=== PATIENT | female | born 1995 | race Caucasian/White ===

== ENCOUNTER 2019-09-12 18:34 | Inpatient (IN) ==
[2019-09-12] MEDS ORDERED: SODIUM CHLORIDE 0.9% 1000ML 2,000 ML IV ONE (19:27)
[2019-09-12] MEDS ORDERED: KETOROLAC TROMETHAMINE 15 MG/ML VIAL IV ONE (19:35)
[2019-09-12] MEDS ORDERED: SODIUM CHLORIDE 0.9% 1000ML 1,000 ML IV ONE (19:35)
--- NOTE | 2019-09-12 19:39 | Emergency Department Note ---
Impression & Plan Fever, Abdominal pain, Bone lesion, Lung nodule, Leukocytosis ED Provider Note NAME: JAIR AKHTAR AGE: 24 SEX: F : 1995 ARRIVES VIA: Walk-In INFORMANT: Patient ED PROVIDER(S): Momo Eden DO CHIEF COMPLAINT: Left lower quadrant pain. HPI: Patient presents to the ER for severe left lower quadrant pain. This has been present for the past 24 hours. She notes that earlier it was a 10 out of 10. Describes it as sharp stabbing in nature. She has had pain in her left back radiating through her gluteus into her left thigh. This is been present off and on since June. She notes that walking and movement makes the pain significantly worse. She denies any cough, runny nose, fevers or belly pain. No other exacerbating or remitting factors. Patient does note that she has had some intermittent vaginal bleeding but notes that this has been present since she received a intrauterine device. Denies any history of cancer. No cough, runny nose, shortness of breath, or chest pain. Denies any vaginal bleeding or discharge ROS: See above HPI for pertinent positives & negatives. A total of 10 systems reviewed and were otherwise negative. PAST MEDICAL HISTORY:See Below PAST SURGICAL HISTORY:See Below FAMILY HISTORY:See Below SOCIAL HISTORY:See Below HOME MEDICATIONS:See Below ALLERGIES:See Below VITALS:See Below PHYSICAL EXAMINATION: GENERAL: Sitting up in bed, alert, well appearing, well nourished, no distress, non-toxic EYE EXAM: normal conjunctiva. PERRL and EOM's grossly intact. OROPHARYNX: no exudate, no erythema, lips, buccal mucosa, and tongue normal and mucous membranes are moist NECK: supple, no nuchal rigidity, no adenopathy, non-tender LUNGS: Clear to auscultation. Normal chest wall mechanics HEART: no murmurs, S1 normal and S2 normal ABDOMEN: abdomen soft, non-tender, normo-active bowel sounds, no masses, no rebound or guarding. BACK: Back is symmetrical on inspection and there is no deformity, no midline tenderness. Tenderness left lower lateral back tracking through left gluteus SKIN: no rashes and no bruising UPPER EXTREMITIES: upper extremities are grossly normal. LOWER EXTREMITIES: No pitting edema. Flexion-extension of the hips knees ankles and EHL 5 out of 5 bilaterally. Patellar and Achilles reflexes are 2 out of 4. NEURO EXAM: Normal sensorium, cranial nerves II-XII grossly intact, normal speech, no gross weakness of arms, no gross weakness of legs. No drift. Finger to nose intact. Gross sensation intact. MEDICAL DECISION MAKING: Patient is a 34-year-old female that presents the ER with left lower quadrant abdominal pain. She was febrile upon presentation with a temperature 38. IV was established blood work was obtained. Labs show leukocytosis of 15,000. P latelets are elevated in the 400s. BMP with a potassium of 3.3. LFTs were unremarkable. Protein was elevated at 9.8. Lipase was normal. Calcium was normal at 9.9. UA was negative. was negative. Patient also complains of pain radiating down her back into her left leg. She is neurol ogically intact in the lower extremities. CT abdomen pelvis and lumbar spine show a large disc which is likely causing her radicular symptoms in her left leg. CT of the abdomen showed no acute pathology but did note some small spiculated lesions in the lower lobes of the lung. At her age we did favor that this was likely infectious but she has no infectious symptoms. With the fever and the back pain MRI was performed although she denies any IV drug use, recent surgeries or any previous fevers. MRIs shows multiple lesions of the vertebral bodies and sacrum concerning for metastatic disease. Discussed with Dr. Jose from hematology oncology. Discussed with the hospitalist and patient was updated bedside. Patient will be admitted for further work-up. Triage Nursing notes reviewed. Prior medical records reviewed Vital Signs: reviewed and remarkable for febrile, tachycardic Differential diagnosis: Differential diagnosis includes etiologies such as sepsis, UTI, pneumonia, metabolic, electrolyte abnormalities, cardiac sources, intracerebral event, toxicologic, neurological, as well as others were entertained. ER treatment provided: See below Diagnostics interpreted by me: ECG: none Cardiac Monitoring: An order was placed for continuous cardiac monitoring. The monitor shows a rate of 86 with rhythm. Laboratory studies: As stated above and show below. Imaging studies: CT abdomen pelvis shows no acute pathology MRI of the lumbar spine shows disc with some bony lesions CT of the lumbar spine showed disc bulge Portable AP upright 1 view of the chest shows no focal infiltrate or pneumothorax Consultation(s): Dr. Jose from hematology oncology commends admission Discussed with Dr. Hampton ED COURSE: Procedures: none PDMP:reviewed and no issues Critical Care: None Past Med/Surg History Social History Feels Safe at Home: Yes Smoking Status: Never smoker Allergies Allergies Allergy/AdvReac Type Severity Reaction Status Date / Time peanut Allergy Severe THROAT Verified 09/12/19 23:39 SWELLS, MOUTH DRYS UP peanut oil Allergy Severe THROAT Verified 09/12/19 23:39 SWELLS, MOUTH DRYS UP Home Meds Home Medications Medication Instructions Recorded Confirmed copper [ParaGard T 380A] 380 mm2 INTRAUTERINE CONTINOUS 09/12/19 09/12/19 dextroamphetamine-amphetamine 20 mg PO DAILY 09/12/19 09/12/19 [Adderall XR] Results & Data (ED) Vital Signs Vital Signs - 24 hr 09/12/19 18:54 09/12/19 23:08 Temperature 37.9 C H Temperature Source Oral Pulse Rate 101 H Pulse Rate [Finger] 63 Respiratory Rate 18 18 Blood Pressure 118/82 Blood Pressure [Left Arm] 104/38 L Blood Pressure Mean 94 Blood Pressure Mean [Left Arm] 60 Pulse Oximetry 98 98 Oxygen Delivery Method Room Air Room Air Sepsis Recent Fever Within 48 Hours Yes Sepsis New/Unexplained Change in Mental Status No Sepsis Action Taken by Nursing No Action Required Laboratory Data Result diagrams: 09/12/19 19:44 09/12/19 19:44 Lab Results 09/12/19 09/12/19 09/12/19 Range/Units 19:44 19:44 19:44 WBC 15.72 H (4.8-10.8) K/uL RBC 4.72 (4.2-5.4) M/uL Hgb 12.7 (12.0-16.0) g/dL Hct 38.5 (37-47) % MCV 81.6 (80-100) fL MCH 26.9 (25-34) pg MCHC 33.0 (32-36) g/dL RDW Std Deviation 41.7 (36.4-46.3) fL RDW Coeff of Franci 13.8 (11.5-14.5) % Plt Count 488 H (130-400) K/uL MPV 9.8 (7.4-10.4) fL Immature Gran % (Auto) 0.2 % Neut % (Auto) 78.0 % Lymph % (Auto) 11.1 % Piute % (Auto) 7.8 % Eos % (Auto) 2.5 % Baso % (Auto) 0.4 % Immature Gran # (Auto) 0.03 H (0.00-0.02) K/uL Neut # (Auto) 12.26 H (1.4-6.5) K/uL Lymph # (Auto) 1.75 (1.2-3.4) K/uL Piute # (Auto) 1.23 H (0.11-0.59) K/uL Eos # (Auto) 0.39 (0-0.5) K/uL Baso # (Auto) 0.06 (0-0.2) K/uL Sodium 137 (136-145) mmol/L Potassium 3.3 L (3.5-5.1) mmol/L Chloride 102 (98-107) mmol/L Carbon Dioxide 28 (21-32) mmol/L Anion Gap 6.0 (3-11) BUN 6 L (7-18) mg/dl Creatinine 0.91 (0.6-1.2) mg/dl Est Cr Clr Drug Dosing 77.8 ml/min Est GFR ( Amer) 100.9 Est GFR (Non-Af Amer) 87.1 BUN/Creatinine Ratio 6.7 L (10-20) Glucose 77 (70-99) mg/dl Calcium 9.9 (8.5-10.1) mg/dl Total Bilirubin 0.2 (0.2-1) mg/dl AST 12 L (15-37) U/L ALT 24 (12-78) U/L Alkaline Phosphatase 132 H (45-117) U/L Total Protein 9.8 H (6.4-8.2) gm/dl Albumin 4.3 (3.4-5.0) gm/dl Globulin 5.5 H (2.5-4.0) gm/dl Albumin/Globulin Ratio 0.8 L (0.9-2) Lipase 109 (73-393) U/L Urine Color Yellow Urine Appearance Clear (Clear) Urine pH 6.0 (4.5-7.5) Ur Specific Selmer 1.015 (1.000-1.030) Urine Protein Negative (Negative) Urine Glucose (UA) Negative (Negative) Urine Ketones Negative (Negative) Urine Blood Negative (Negative) Urine Nitrite Negative (Negative) Urine Bilirubin Negative (Negative) Urine Urobilinogen Negative (Negative) Ur Leukocyte Esterase Negative (Negative) POC Ur Test (NEG) 09/12/19 Range/Units 19:44 WBC (4.8-10.8) K/uL RBC (4.2-5.4) M/uL Hgb (12.0-16.0) g/dL Hct (37-47) % MCV (80-100) fL MCH (25-34) pg MCHC (32-36) g/dL RDW Std Deviation (36.4-46.3) fL RDW Coeff of Franci (11.5-14.5) % Plt Count (130-400) K/uL MPV (7.4-10.4) fL Immature Gran % (Auto) % Neut % (Auto) % Lymph % (Auto) % Piute % (Auto) % Eos % (Auto) % Baso % (Auto) % Immature Gran # (Auto) (0.00-0.02) K/uL Neut # (Auto) (1.4-6.5) K/uL Lymph # (Auto) (1.2-3.4) K/uL Piute # (Auto) (0.11-0.59) K/uL Eos # (Auto) (0-0.5) K/uL Baso # (Auto) (0-0.2) K/uL Sodium (136-145) mmol/L Potassium (3.5-5.1) mmol/L Chloride (98-107) mmol/L Carbon Dioxide (21-32) mmol/L Anion Gap (3-11) BUN (7-18) mg/dl Creatinine (0.6-1.2) mg/dl Est Cr Clr Drug Dosing ml/min Est GFR ( Amer) Est GFR (Non-Af Amer) BUN/Creatinine Ratio (10-20) Glucose (70-99) mg/dl Calcium (8.5-10.1) mg/dl Total Bilirubin (0.2-1) mg/dl AST (15-37) U/L ALT (12-78) U/L Alkaline Phosphatase (45-117) U/L Total Protein (6.4-8.2) gm/dl Albumin (3.4-5.0) gm/dl Globulin (2.5-4.0) gm/dl Albumin/Globulin Ratio (0.9-2) Lipase (73-393) U/L Urine Color Urine Appearance (Clear) Urine pH (4.5-7.5) Ur Specific Selmer (1.000-1.030) Urine Protein (Negative) Urine Glucose (UA) (Negative) Urine Ketones (Negative) Urine Blood (Negative) Urine Nitrite (Negative) Urine Bilirubin (Negative) Urine Urobilinogen (Negative) Ur Leukocyte Esterase (Negative) POC Ur Test NEG (NEG) Administered Medications Gadobutrol (Gadavist 65ml) 5 ml IV ONCE PRN PRN Reason: Interaction Checking Stop: 09/16/19 22:43 Last Admin: 09/12/19 22:40 Dose: 5 ml Documented by: [id number] Ioversol (Optiray 320 100ml) 94 ml IV ONCE PRN PRN Reason: Interaction Checking Stop: 09/16/19 20:39 Last Admin: 09/12/19 20:41 Dose: 94 ml Documented by: [id number] Discontinued Medications Sodium Chloride (Nss 1000ml) 2,000 mls @ 999 mls/hr IV .Q2H1M ONE Stop: 09/12/19 21:27 Last Infusion: 09/12/19 22:00 Dose: 0 mls/hr Documented by: [id number] Admin: 09/12/19 19:53 Dose: 999 mls/hr Documented by: [id number] Sodium Chloride (Nss 1000ml) 1,000 mls @ 999 mls/hr IV .Q1H1M ONE Stop: 09/12/19 20:35 Last Admin: 09/13/19 00:15 Dose: Not Given Documented by: [id number] Ketorolac Tromethamine (Toradol) 15 mg IV NOW ONE Stop: 09/12/19 19:36 Last Admin: 09/12/19 20:06 Dose: 15 mg Documented by: [id number] Discharge Plan Visit Data Chief Complaint: Pain (Generalized) Stated Complaint: PELVIC PAIN, BACK PAIN, LEFT LEG NUMB ED Provider: Momo Eden Discharge Problem: Fever, Abdominal pain, Bone lesion, Lung nodule, Leukocytosis Forms Stand Alone Forms: [facility] Prescriptions Prescriptions: No Action dextroamphetamine-amphetamine [Adderall XR] 20 mg Capsule,Extended Release 24hr 20 mg PO DAILY RF: 0 ParaGard T 380A 380 square mm Intrauterine Device 380 mm2 INTRAUTERINE CONTINOUS RF: 0 Discharge Problem: Fever Qualifiers: Fever type: unspecified Qualified Code(s): R50.9 - Fever, unspecified Abdominal pain Qualifiers: Abdominal location: unspecified location Qualified Code(s): R10.9 - Unspecified abdominal pain Leukocytosis Qualifiers: Leukocytosis type: unspecified Qualified Code(s): D72.829 - Elevated white blood cell count, unspecified
[2019-09-12 19:59] LABS: Basophils # (auto) 0.06 K/uL (0-0.2); Basophils % (auto) 0.4 %; Eosinophils # (auto) 0.39 K/uL (0-0.5); Eosinophils % (auto) 2.5 %; Hematocrit (blood only) 38.5 % (37-47); Hemoglobin 12.7 g/dL (12.0-16.0); Immature Granulocytes # (auto) 0.03 K/uL (0.00-0.02); Immature Granulocytes % (auto) 0.2 %; Lymphocytes # (auto) 1.75 K/uL (1.2-3.4); Lymphocytes % (auto) 11.1 %; Mean Corpuscular Hemoglobin 26.9 pg (25-34); Mean Corpuscular Volume 81.6 fL (80-100); Mean Platelet Volume 9.8 fL (7.4-10.4); Monocytes # (auto) 1.23 K/uL (0.11-0.59); Monocytes % (auto) 7.8 %; Neutrophils # (auto) 12.26 K/uL (1.4-6.5); Platelet Count 488 K/uL (130-400); RDW Coefficient of Variation 13.8 % (11.5-14.5); RDW Standard Deviation 41.7 fL (36.4-46.3); Red Blood Count 4.72 M/uL (4.2-5.4); White Blood Count 15.72 K/uL (4.8-10.8)
[2019-09-12 20:03] LABS: Appearance Urine Clear (Clear); Bilirubin Urine Negative (Negative); Blood Urine Negative (Negative); Color Urine Yellow; Glucose Urine UA Negative (Negative); Ketones Urine Negative (Negative); Leukocyte Esterase Urine Negative (Negative); Nitrite Urine Negative (Negative); Protein Urine Negative (Negative); Specific Gravity Urine 1.015 (1.000-1.030); Urobilinogen Urine Negative (Negative)
[2019-09-12 20:16] LABS: Albumin Level 4.3 gm/dl (3.4-5.0); BUN Creatinine Ratio 6.7 (10-20); Calcium 9.9 mg/dl (8.5-10.1); Creatinine Clr Calc Pharmacy 77.8 ml/min; Est GFR (African American) 100.9; Est GFR (Non-African American) 87.1; Potassium 3.3 mmol/L (3.5-5.1)
[2019-09-12 20:19] LABS: Albumin Globulin Ratio 0.8 (0.9-2); Bilirubin,Total 0.2 mg/dl (0.2-1); Globulin 5.5 gm/dl (2.5-4.0); Total Protein 9.8 gm/dl (6.4-8.2)
[2019-09-12] MEDS ORDERED: IOVERSOL 100ml IV PRN (20:40)
--- NOTE | 2019-09-12 20:55 | CT Scan Report ---
CT lumbar spine wo con HISTORY: 24 years-old Female lower back pain acute low back pain without reported trauma COMPARISON: CT abdomen and pelvis 09/12/2019 TECHNIQUE: Multiple axial CT images of the lumbar spine were obtained without the use of IV contrast. Coronal and sagittal reformatted images were obtained from the axial data set and were submitted for review. A dose lowering technique was used consistent with the principals of JUSTINO. FINDINGS: Please refer to the CT abdomen and pelvis study of same day for discussion of the intra-abdominal fin dings. The paraspinal tissues are within normal limits. Mild sclerosis of the mid L2 vertebral body appears benign. No acute fracture, subluxation or signifi cant degenerative changes. Evaluation of the central canal and neuroforamina is better evaluated by Christina BRAR. There is a large central disc protrusion at L4-L5 which appears to cause at least moderate centra l canal and left lateral recess narrowing. The bilateral neuroforamen at this interspace appear gener ally patent. IMPRESSION: 1. No acute fracture or subluxation. 2. Large central/left paracentral disc protrusion at L4-L5 results in at least moderate central canal and left lateral recess stenosis. ACT 112: Negative or not required by law. The above report was generated using voice recognition software. It may contain grammatical, syntax o r spelling errors. Electronically signed by: Alex Clinton M.D. 09/12/2019 8:54 PM
--- NOTE | 2019-09-12 21:03 | CT Scan Report ---
ABDOMEN AND PELVIS CT WITH IV CONTRAST HISTORY: Acute left lower quadrant abdominal pain with low back pain llq abd pain TECHNIQUE: Multiaxial CT images of the abdomen and pelvis were performed following the IV administrat ion of 94 cc of Optiray 320, A dose lowering technique was utilized adhering to the principles of AL EILEEN. COMPARISON STUDY: CT lumbar spine of same day FINDINGS: There are several irregular and somewhat spiculated nodular opacities of the basal lower lobes measur ing up to 1.3 cm on the right, image 28 series 3. No pneumatosis or pneumoperitoneum. The imaged infe rior cardiac chambers are unremarkable. Pectus excavatum. The spleen, pancreas and adrenal glands are unremarkable. Mildly contracted gallbladder. Periportal edema is likely related to hydration status. Patency of the hepatic and portal veins. Unremarkable kidneys. Partially decompressed urinary bladder. IUD appears appropriate positioning wit hin the uterus. Follicular changes of the ovaries. Trace free pelvic fluid, likely physiologic. Aorta and IVC are unremarkable. No adenopathy. There is mild nonspecific distal esophageal wall thickening . No bowel obstruction. No bowel wall thickening identified. Normal appendix. There are a few scatter ed nondilated fluid-filled loops of small bowel, likely physiologic. Soft tissues are unremarkable. B ones appear intact. There is a central disc protrusion at L4-L5 which contributes to at least moderat e central canal stenosis. IMPRESSION: 1. No acute intra-abdominal or intrapelvic abnormality. 2. There are several irregular and spiculated pulmonary nodules of the lung bases measuring up to 1.3 cm within the basal right lower lobe. In a patient of this age group, the primary differential consi deration would be an infectious or inflammatory pneumonitis. A follow-up one month chest CT is recomm ended to further characterize. 3. Central disc protrusion at L4-L5 contributes to at least moderate central canal stenosis. 4. Normal appendix. ACT 112: Negative or not required by law. The above report was generated using voice recognition software. It may contain grammatical, syntax o r spelling errors. Electronically signed by: Alex Clinton M.D. 09/12/2019 9:01 PM
[2019-09-12] MEDS ORDERED: GADOBUTROL 65ML VIAL IV PRN (22:44)
[2019-09-13 00:41] LABS: Uric Acid 4.1 mg/dl (2.6-7.2)
--- NOTE | 2019-09-13 03:07 | History & Physical Report ---
Date of Service September 13, 2019 Assessment & Plan (1) Back pain: Nilda is an otherwise healthy 24 yo female presenting for evaluation of progressive left low back and abdominal pain, found to have bilateral spiculated lung masses and osseous lesions on spine concerning for new, metastatic process. - lumbar spine MRI showing disc protrusion at L4-L5 causing moderate to severe spinal canal stenosis - MRI also showing enhancing lesions in T11, L2, L5 vertebral bodies and left transverse process of L5. Also present in right aspect of sacrum. These findings are concerning for an undiagnosed neoplasm/osseous metastatic process - discomfort may be related to one or both of the above findings - pain resolved with IV Toradol and Gadavist - Toradol ordered prn for additional analgesia - consider PET scan (which would have to take place as outpatient) given concern for new, metastatic process - heme/onc consult placed - consider ortho spine consult for disc protrusion management (2) Lung nodule: - bilateral spiculated nodules in lung bases visualized on abdominopelvic CT scan - patient without history of underlying lung disease - patient denies preceding upper or lower respiratory symptoms - no tobacco or illicit drug use - concerning for malignancy, especially in the setting of spine lesions, elevated ESR, and leukocytosis - consider dedicated chest imaging to further characterize and assess for lymphadenopathy vs. PET scan - heme/onc consult placed (3) Abdominal pain: - described as left lower quadrant - likely related to above disc herniation - resolved with IV toradol and Gadvist - CT showing no acute process in abdomen or pelvis (4) Bone lesion: - Lumbar spine MRI showing enhancing lesions in T11, L2, L5 vertebral bodies and left transverse process of L5. Also present in right aspect of sacrum. These findings are concerning for an undiagnosed neoplasm/osseous metastatic process - work up per heme/onc (5) Leukocytosis: - WBC elevated to 15,000 with neutrophilia, elevated monocytes and immature granulocytes. - concern for infection vs. malignancy - UA clear. Patient with spiculated nodules in bilateral lung bases, although denies respiratory symptoms of cough/SOB/general malaise. Unclear source of infection. - peripheral smear pending - blood cultures pending - repeat CBC in AM (6) Fever: - Tmax 37.9 on admission, has since resolved - suspicion of infection vs. inflammatory state - patient denies present illness - Acetaminophen ordered prn for anti-pyretic (7) Hypokalemia: - level mildly low at 3.3 on admission - repeat BMP in AM (8) ADHD: - continue Adderall 20mg, daily Dispo: Med/Surg DVT: bilateral SCDs Diet: NPO until evaluated by heme/onc (in the event of biopsy procedure) Code: full History of Present Illness Primary Care Provider: NO PCP Nilda is a 24 yo otherwise healthy female who presented to the ED for evaluation of left sided low back and abdominal pain. Nilda first noticed the left low back pain in June 2019, at which time the discomfort radiated to her left gluteus muscle. Nilda and her moved several weeks prior to onset of discomfort, although she cannot recall a specific lifting injury to her back. After discussing with a close friend who works as a physical therapist, Nilda began a set of daily stretching exercises targeted for sciatica. However, the stretching provided only minimal improvement, and over the past 2-3 weeks, the left low back pain began wrapping around her torso to the left side of her abdomen. Nilda describes an excruciating level of discomfort at times, and notes unremitting nighttime pain. Advil provided no relief. She was scheduled to see a physician at [facility] for this problem later in the week, but presented sooner due to escalating pain. Patient denies any recent illness, including fevers, runny nose, cough, SOB, general malaise. 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 PMHx: ADHD, on Adderall. Diagnosed with "vasovagal syncope" several years ago by an outside physician, which resulted in several fainting episodes. This was treated with increasing dietary sodium intake. Has a Paraguard IUD in place since 2017. Surg Hx: two mole excisions, pathology returned as benign Fam Hx: Paternal Grand Father - COPD. Father - kidney stones, ADHD. Mother - healthy. Older Brother - ADHD. No family history of cancer. Soc Hx: . Sexually active with . 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 Lives in [place]. Non-smoker. No illicit drug use. Etoh only on rare occasion. ED course: Patient was febrile on arrival (tmax 37.9). WBC elevated to 15,000 with neutrophilia, elevated monocytes and immature granulocytes. Platelets elevated to 488K. Peripheral smear pending. Blood cultures pending. Potassium low at 3.3. Electrolytes otherwise normal. ESR elevated to 71. Total protein elevated to 9.8. Alk phos elevated to 132. Lipase normal. UA normal. Urine preg negative. CXR obtained, showing no active disease in chest, final read pending. Abdomen and pelvis CT showing several spiculated masses in bilateral lung bases. No acute intraabdominal findings, final read pending. Lumbar spine CT showing large central/left paracentral disc protrusion at L4-L5 results in at least moderate central canal and left lateral recess stenosis. Final read pending. Lumbar spine MRI showing enhancing lesions in T11, L2, L5 vertebral bodies and left transverse process of L5. Also present in right aspect of sacrum. Concerning for neoplasm/osseous metastatic. Disc protrusion at L4-L5 causing moderate to severe spinal canal stenosis. Final read pending. Patient was treated with Toradol 15mg, IV, Gadvist 65Ml, IV and IVF. Allergies Allergy/AdvReac Type Severity Reaction Status Date / Time peanut Allergy Severe THROAT Verified 09/12/19 23:39 SWELLS, MOUTH DRYS UP peanut oil Allergy Severe THROAT Verified 09/12/19 23:39 SWELLS, MOUTH DRYS UP Home Medications Home Medications Medication Instructions Recorded Confirmed Type ParaGard T 380A 380 mm2 INTRAUTERINE CONTINOUS 09/12/19 09/12/19 History dextroamphetamine-amphetamine 20 mg PO DAILY 09/12/19 09/12/19 History [Adderall XR] Past Med/Surg History Social History Preferred Language: Maltese Communication Ability: Effective Building Stonecutter Required: No Beliefs That Will Affect Care: None Current Living Situation: Spouse Other Information That Helps Us Care for You: No Feels Safe at Home: Yes Safety Concerns: Feels Safe At This Time Smoking Status: Never smoker Hx Alcohol Use: Yes Alcohol type: beer and wine Hx Substance Use: No Review of Systems Genitourinary: + bleeding between periods and + abnormal vaginal bleeding Musculoskeletal: + back pain Physical Exam Constitutional: WD/WN, vitals as above no acute distress Eyes: + anicteric sclerae ENMT: external ear and nose normal, oropharynx normal Neck: normal visual inspection and trachea midline Thyroid: normal thyroid Respiratory: normal respiratory effort, lungs clear to auscultation no cough Auscultation: no crackles, no rales, no rhonchi, no wheezes and no pleural rub Cardiovascular: RRR, no murmur, no edema Heart Sounds: normal S1 and normal S2 Extremities: no pedal edema Gastrointestinal (Abdomen): Inspection/Auscultation: normal bowel sounds; abdomen not distended Percussion/Palpation: + abdomen tender (mild, suprapubic region ) and abdomen soft; no hepatosplenomegaly Musculoskeletal: + midline tenderness in lumbar region. + paraspinal muscle tenderness in thoracic region. + left gluteal tenderness Skin: no rashes, warm and dry Psychiatric: A+Ox3, euthymic affect Results & Data Results & Data ([facility]) Vital Signs (Past 12 Hours) Vital Signs Temp Pulse Pulse Resp BP BP Pulse Ox 09/13/19 02:39 63 18 99/59 L 99 09/12/19 23:08 63 18 104/38 L 98 09/12/19 18:54 37.9 C H 101 H 18 118/82 98 Supervising Physician Co-Signing Physician Notes Attending addendum: I have physically seen this patient, have supervised the medical residents activities, and agree with the H&P unless as otherwise noted. Assessment and Plan: Enhancing lesions at T11/L2/L5 vertebral bodies, left L5 transverse process, and right sacrum- Radiologic interpretation concerns regarding metastatic disease of unknown primary. Consult oncology Dr. Jose. Irregular spiculated bilateral pulmonary nodules at the lung bases bilaterally- Differential during this age group is infectious versus inflammatory. Patient without any significant exposures. We will order full CT of chest to further assess, and determine if IV antibiotics are appropriate. May need pulmonology consult for possible bronchoscopy. Hyperproteinemia/bone lesions/leukocytosis- Total protein level 9.8. Question with a globulin increase is associated with increased antibodies versus underlying immunologic issue such as MGUS, MM. Order peripheral smear Consult with heme-onc Dr. Jose. Remaining orders and notations as noted. Resident Activity Tracking Resident Involvement: Resident Care Provided Care Provided: Adult Hospital Medicine (1) Fever Fever type: unspecified Qualified Code(s): R50.9 - Fever, unspecified (2) Leukocytosis Leukocytosis type: unspecified Qualified Code(s): D72.829 - Elevated white blood cell count, unspecified (3) Abdominal pain Abdominal location: unspecified location Qualified Code(s): R10.9 - Unspecified abdominal pain
[2019-09-13] MEDS ORDERED: MAGNESIUM HYDROXIDE SUSP 30 ML UDC PO PRN (03:34)
[2019-09-13] MEDS ORDERED: ACETAMINOPHEN 325 MG TAB PO PRN (03:34)
[2019-09-13] MEDS ORDERED: ALUMINUM/MAGNESIUM SUSP 30 ML UDC PO PRN (03:34)
[2019-09-13] MEDS ORDERED: ONDANSETRON INJ 2 MG/ML 2 ML VIAL IV PRN (03:34)
[2019-09-13] MEDS ORDERED: POLYETHYLENE (MIRALAX) 17 GM PACK PO PRN (03:34)
[2019-09-13] MEDS ORDERED: ZOLPIDEM TARTRATE 5 MG TAB PO PRN (03:34)
[2019-09-13] MEDS ORDERED: [UNRECOGNIZED DRUG - OTHER] IU SCH (03:34)
--- NOTE | 2019-09-13 07:28 | CT Scan Report ---
CT chest wo con CLINICAL HISTORY: Suspected metastatic disease. Abnormal MRI of the lumbar spine. COMPARISON STUDY: No previous studies for comparison. CT DOSE: 290.46 mGycm TECHNIQUE: CT of the thorax was performed from the thoracic inlet to the lung bases. Images are revi ewed in the axial, sagittal, and coronal planes. IV contrast was not administered for this examinatio n. A dose lowering technique was utilized adhering to the principles of ALARA. FINDINGS: Thyroid: Imaged portions of the thyroid gland are normal in appearance. Thoracic aorta: The thoracic aorta is normal in course and caliber, noting standard 3 vessel arch sarah jarvis. Heart: The heart is normal in size and configuration, without pericardial effusion. Lungs and pleural spaces: There are multiple bilateral irregular marginated pulmonary nodules. These could be neoplastic or infectious. The largest is located within the right lower lobe measuring 12 mm . There are no pleural effusions. Mediastinum: There are borderline enlarged mediastinal lymph nodes measuring up to 9.5 mm in diameter . Tatiana: Hilar structures are suboptimally assessed given the lack of intravenously administered contras t. Axilla: There is no evidence of pathologic axillary lymphadenopathy Upper abdomen: Partially visualized upper abdominal viscera is within normal limits. Skeletal structures: There are subtle blastic changes involving the manubrium. IMPRESSION: 1. Multiple bilateral irregularity marginated pulmonary nodules, the largest of which measures 12 mm. These could be neoplastic or infectious. 2. Subtle blastic changes involving the manubrium 3. Borderline enlarged mediastinal lymph nodes ACT 112: Negative or not required by law. Electronically signed by: Tay Morris M.D. 09/13/2019 7:26 AM
[2019-09-13 07:54] LABS: Basophils # (auto) 0.04 K/uL (0-0.2); Basophils % (auto) 0.4 %; Eosinophils % (auto) 3.3 %; Hematocrit (blood only) 33.3 % (37-47); Hemoglobin 10.7 g/dL (12.0-16.0); Immature Granulocytes # (auto) 0.02 K/uL (0.00-0.02); Immature Granulocytes % (auto) 0.2 %; Lymphocytes # (auto) 1.63 K/uL (1.2-3.4); Mean Corpuscular Hemoglobin 26.3 pg (25-34); Mean Corpuscular Hgb Conc 32.1 g/dL (32-36); Mean Corpuscular Volume 81.8 fL (80-100); Mean Platelet Volume 9.6 fL (7.4-10.4); Monocytes # (auto) 0.77 K/uL (0.11-0.59); Monocytes % (auto) 8.5 %; Neutrophils # (auto) 6.31 K/uL (1.4-6.5); Neutrophils % (auto) 69.6 %; Platelet Count 345 K/uL (130-400); RDW Standard Deviation 42.1 fL (36.4-46.3); Red Blood Count 4.07 M/uL (4.2-5.4); White Blood Count 9.07 K/uL (4.8-10.8)
--- NOTE | 2019-09-13 07:54 | XRay Report ---
XR chest 1V portable CLINICAL HISTORY: fever COMPARISON STUDY: No previous studies for comparison. FINDINGS: The cardiac and mediastinal contours are normal. There is no evidence of focal pulmonary co nsolidation. There is no evidence of failure. No pleural effusions are visualized.[ IMPRESSION: No active disease in the chest. ACT 112: Negative or not required by law. Electronically signed by: Tay Morris M.D. 09/13/2019 7:52 AM
[2019-09-13 08:24] LABS: BUN Creatinine Ratio 7.7 (10-20); Calcium 8.5 mg/dl (8.5-10.1); Creatinine Clr Calc Pharmacy 109.1 ml/min; Est GFR (Non-African American) 122.5; Potassium 3.8 mmol/L (3.5-5.1)
--- NOTE | 2019-09-13 08:27 | Magnetic Resonance Report ---
MR lumbar spine wo/w con CLINICAL HISTORY: 24 years-old Female with fever back pain. Fever with acute low back pain COMPARISON: CT lumbar spine, CT abdomen and pelvis 09/12/2019 TECHNIQUE: Multiplanar, multi sequence MRI of the lumbar spine was performed without intravenous cont rast. FINDINGS: Ambulance Paramedic localizer images demonstrate no gross extraspinal abnormality. Conus medullaris terminates at T 12-L1. Normal signal within the imaged thoracic spinal cord. The cauda equina appear unremarkable. Ma rrow replacing enhancing lesions are noted with in the T11, L2 and L5 vertebral bodies with extension into the left L5 pedicle. Partially imaged lesion involves the right sacral ala. These lesions demon strate decreased T1 and increased T2/STIR signal. No pathologic fracture or cortical destruction. No epidural lesions. T12-L1: No central canal or neural foraminal stenosis. L1-L2: No central canal or neural foraminal stenosis. L2-L3: No central canal or neural foraminal stenosis. L3-L4: No central canal or neural foraminal stenosis. L4-L5: Mild disc space narrowing with disc desiccation. Circumferential annular disc bulge with cent ral disc protrusion which measures 1.5 x 0.6 cm in transverse and AP dimensions. This narrows the AP dimension of the thecal sac to 6 mm resulting in moderate to severe central canal stenosis with moder ate to severe narrowing of the lateral recesses. Mild bilateral foraminal narrowing. L5-S1: No central canal or neural foraminal stenosis. IMPRESSION: 1. Marrow replacing enhancing lesions at T11, L2, L5 and also within the right sacral ala are suspici ous for osseous metastatic disease from unknown primary. Lymphoma is also within the differential how ever considered less likely. Oncologic workup is needed. 2. No pathologic fracture, cortical erosion or epidural tumor component identified. 3. Discogenic degeneration at L4-L5 with central disc protrusion results in moderate to severe centra l canal and lateral recess narrowing with mild bilateral foraminal stenosis. ACT 112: Negative or not required by law. The above report was generated using voice recognition software. It may contain grammatical, syntax o r spelling errors. Electronically signed by: Alex Clinton M.D. 09/13/2019 8:26 AM
[2019-09-13] MEDS: KETOROLAC TROMETHAMINE 15 MG/ML VIAL IV PRN ×2 (08:40→15:30)
[2019-09-13] MEDS ORDERED: AMPHETAMINE ASP/SULF/DEXTRAMPH ER 20 MG CAP PO SCH (09:00)
--- NOTE | 2019-09-13 11:59 | Consultation Report ---
DATE OF CONSULTATION: 09/13/2019 MEDICAL ONCOLOGY CONSULTATION REASON FOR CONSULTATION: Sclerotic L5 lesion. HISTORY OF PRESENT ILLNESS: Nilda Penny is a very pleasant, sweet 24-year-old female patient from [place] who was admitted to [facility] after presenting to the Emergency Room with subacute-onset back pain. Nilda admits her pain/discomfort began back in May and she equated her symptoms to back strain, but never really had marked improvement, and over the last couple of weeks, the quality and character of the pain have changed, now experiencing a belt-like band distribution of pain as well as numbness and tingling that extended down the left lower extremity. She denies any overt muscle weakness, is able to ambulate. She utilized [id number] nonsteroidals for pain control. She denies anorexia or weight loss. The patient does not relate fever; however, low-grade fever was noted upon presentation. I was alerted to her case by the Emergency Room physician and based on the radiographic findings, thought it was best that she be admitted to hospital. CT scan of the chest revealed interesting findings as well. Multiple bilateral marginated pulmonary nodules, the largest of which is 12 mm, thought to be either neoplastic or infection. There are subtle blastic changes involving the manubrium noted. Peripheral blood counts done on admission reveal a reactive thrombocytosis as well as leukocytosis-predominant neutrophilia. Her protein is markedly elevated at 9.8 with a globulin fraction of 5.5. PAST MEDICAL HISTORY: Essentially negative. PAST SURGICAL HISTORY: Negative. MEDICATIONS: She uses an IUD and Adderall-XL 20 mg p.o. daily. ALLERGIES: PEANUTS AND PEANUT OIL. SOCIAL HISTORY: The patient is , currently a PhD student in psychology. She is a nonsmoker, nondrinker. FAMILY HISTORY: On the paternal side, both her paternal grandfather and paternal uncle from pulmonary disease, I suspect idiopathic pulmonary fibrosis from what she describes. Her mother is adopted. Thus, no direct family history of breast cancer. REVIEW OF SYSTEMS: Most notably for subacute-onset progressive back pain, now with radicular symptoms. CONSTITUTIONAL: Negative for fevers, chills or night sweats. She is not anorexic or losing weight. SKIN: She suffers from dysplastic nevi and follows with dermatology regularly. No overt rashes or lesions otherwise. HEENT: Negative for headaches, lightheadedness or dizziness. No acute visual or hearing deficits. No sinus symptoms, sore throat or dysphagia. LYMPHATICS: No history of lymphoproliferative disease. CARDIAC: No history of coronary artery disease, no angina or palpitations. PULMONARY: Negative for COPD. She is not short of breath, dyspneic or orthopneic. No cough or hemoptysis. GASTROINTESTINAL: Negative for abdominal pain, nausea, vomiting, diarrhea or constipation, hematochezia or melena stools. GENITOURINARY: No hematuria, dysuria, or urinary incontinence. PSYCHIATRIC: Negative for anxiety, depression or psychoses. ENDOCRINE: Negative for diabetes or thyroid disease. MUSCULOSKELETAL: As per HPI. NEUROLOGIC: Negative for seizure, stroke, or migraine headache. HEMATOLOGIC: Again, positive for leukocytosis (neutrophilia and reactive thrombocytosis). PHYSICAL EXAMINATION: NEUROLOGICAL: A very pleasant 24-year-old female patient, awake, alert and appropriate, in no acute distress. VITAL SIGNS: Temperature 36.1, pulse 58, respiratory rate 15, blood pressure 92/58. SKIN: Warm, dry, noncyanotic without petechia, rash or ecchymosis. Again, she has several hyperpigmented nevi on her back. HEENT: Atraumatic, normocephalic. Eyes: PERRLA, EOMI. Sclerae nonicteric. No conjunctival injection. Nares are patent without rhinorrhea or discharge. Throat is clear. Tongue is midline. Mucous membranes are moist. NECK: Supple without JVD or thyromegaly. LYMPHATICS: No cervical, supraclavicular, or axillary palpable nodes. HEART: Regular rate and rhythm. No clicks, rubs, murmurs or gallops. LUNGS: Clear to auscultation bilaterally. ABDOMEN: Soft, nontender, nondistended, without palpable hepatosplenomegaly. EXTREMITIES: Musculoskeletal strength and pulses are equal in all 4 quadrants. No clubbing, cyanosis or edema. NEUROLOGICAL: She is awake, alert and oriented x3. Cranial nerves II-XII are grossly intact. No gross motor or sensory deficits are noted. RADIOGRAPHIC DATA: Reviewed CT scan of the chest and MRI of the lumbar spine with Dr. Khan and he believes at first glance these lesions are neoplastic and has difficulty coming up with a nonmalignant differential diagnosis. CT scan of the chest as described in the HPI. LABORATORY DATA: WBC count 15,720, hemoglobin 12.7. Her platelet count 488,000, absolute neutrophil count 12,260. Chemistries: Sodium 137, potassium 3.3, chloride 102, carbon dioxide 28, creatinine 0.91, BUN 6. Her alkaline phosphatase mildly elevated at 132. Again, total protein 9.8, globulin 5.5. Urinalysis is unremarkable. IMPRESSION: 1. Scattered sclerotic bony lesions. 2. Back pain attributable to scattered sclerotic bony lesions. 3. Pulmonary spiculated nodules (infectious versus neoplastic). 4. Increased globulin fraction. PLAN: Nilda Penny was seen and examined at bedside this morning. She describes subacute-onset back pain spanning the last several months and was afraid to come to the hospital or physician for care because of COVID outbreak. Over the past couple of weeks, the character of pain has changed, more persistent, increased radiation in belt-like fashion as well as radicular symptoms extending down into the left lower extremity. Reviewed the MRI with Dr. Khan, and both the radiologist and myself are perplexed and somewhat shocked with the findings in a 24-year-old female patient. Bone biopsy needs to be done. I have discussed the case informally with Dr. Jean who will be the managing hospitalist and collectively agreed to consult Dr. Murcia from orthopedics to see if he would be willing to obtain tissue. Differential diagnosis for sclerotic bone lesions in a female are Paget's disease as well as breast cancer. Multiple myeloma generally presents as lytic skeletal lesions. The globulin fraction needs to be investigated. Therefore, we will obtain a serum protein electrophoresis with immunofixation to rule out monoclonality. If Dr. Murcia is unwilling to pursue a biopsy, I have recommended she be transferred to [facility] for further investigation and workup. Otherwise, the immediate focus should be pain management. I will continue to follow Nilda periodically during her hospital stay. Thank you for allowing me to participate in the care of this very pleasant young lady.
--- NOTE | 2019-09-13 16:59 | Hospitalist Progress Note ---
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; awaiting bed availability. - NPO at midnight - SPEP with fixation pending 2) Pain - currently well controlled - PRN tylenol, ibuprofen (2) Lung nodule: (3) Abdominal pain: (4) Bone lesion: (5) Leukocytosis: (6) Fever: (7) Hypokalemia: (8) ADHD: Admission and Anticipated Discharge Date Admission Date: September 13, 2019 Supervising Physician Co-Signing Physician Notes I personally examined the patient and verified all lazaro points of history and exam, discussed case, and agree with decision making with Dr Alvarez. has good understanding of situation, tearful at times but also cautiously optimistic given that she is otherwise young, healthy, and she does not think dx probably going on that long since pain only there about 3 months. no breast lesions she notes. vitals noted nad heent nc at mmm breathing unlabored no accessory muscle use good effort skin no rashes no pallor or icterus back pain/presumed new dx metastatic cancer - appears getting tissue (most probably from Lspine) would be best next step in determining dx and then planning treatment. with large portion of L5 appearing replaced by tumor - concern would be on Lspine stability making outpatient w/u unsafe until/unless seen/possibly intervened upon by ortho/spine with oncology experience (d/w our spine surgeon here who noted due to lack of cases he would only really be able to get biopsy, not otherwise manage her situation) for transfer to [facility] once bed available. Subjective Pleasant 24 yo F admitted for workup of abdominal and back pain. See H&P for ROS and PE. Results & Data Results & Data ([facility]) Vital Signs (Past 12 Hours) Vital Signs Temp Pulse Pulse Resp BP Pulse Ox 09/13/19 15:44 37.2 C 79 18 109/70 99 09/13/19 11:33 36.8 C 70 15 116/69 100 09/13/19 10:46 37.1 C 63 58 L 15 92/58 L 99 09/13/19 07:56 37.1 C 58 L 15 92/58 L 99 Resident Activity Tracking Resident Involvement: Resident Care Provided Care Provided: Adult Hospital Medicine (1) Fever Fever type: unspecified Qualified Code(s): R50.9 - Fever, unspecified (2) Leukocytosis Leukocytosis type: unspecified Qualified Code(s): D72.829 - Elevated white blood cell count, unspecified (3) Abdominal pain Abdominal location: unspecified location Qualified Code(s): R10.9 - Unspecified abdominal pain
--- NOTE | 2019-09-14 05:53 | Billing Data ---
Date of Service September 14, 2019 Coding Level of Care Code 03947 Initial Inpt Care Lvl 3
--- NOTE | 2019-09-14 15:14 | Discharge Summary ---
Date of Service September 14, 2019 Admission HPI Per Admitting Provider Nilda is a 24 yo otherwise healthy female who presented to the ED for evaluation of left sided low back and abdominal pain. Nilda first noticed the left low back pain in June 2019, at which time the discomfort radiated to her left gluteus muscle. Nilda and her moved several weeks prior to onset of discomfort, although she cannot recall a specific lifting injury to her back. After discussing with a close friend who works as a physical therapist, Nilda began a set of daily stretching exercises targeted for sciatica. However, the stretching provided only minimal improvement, and over the past 2-3 weeks, the left low back pain began wrapping around her torso to the left side of her abdomen. Nilda describes an excruciating level of discomfort at times, and notes unremitting nighttime pain. Advil provided no relief. She was scheduled to see a physician at [facility] for this problem later in the week, but presented sooner due to escalating pain. Patient denies any recent illness, including fevers, runny nose, cough, SOB, general malaise. 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 PMHx: ADHD, on Adderall. Diagnosed with "vasovagal syncope" several years ago by an outside physician, which resulted in several fainting episodes. This was treated with increasing dietary sodium intake. Has a Paraguard IUD in place since 2017. Surg Hx: two mole excisions, pathology returned as benign Fam Hx: Paternal Grand Father - COPD. Father - kidney stones, ADHD. Mother - healthy. Older Brother - ADHD. No family history of cancer. Soc Hx: . Sexually active with . 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 Lives in [place]. Non-smoker. No illicit drug use. Etoh only on rare occasion. ED course: Patient was febrile on arrival (tmax 37.9). WBC elevated to 15,000 with neutrophilia, elevated monocytes and immature granulocytes. Platelets elevated to 488K. Peripheral smear pending. Blood cultures pending. Potassium low at 3.3. Electrolytes otherwise normal. ESR elevated to 71. Total protein elevated to 9.8. Alk phos elevated to 132. Lipase normal. UA normal. Urine preg negative. CXR obtained, showing no active disease in chest, final read pending. Abdomen and pelvis CT showing several spiculated masses in bilateral lung bases. No acute intraabdominal findings, final read pending. Lumbar spine CT showing large central/left paracentral disc protrusion at L4-L5 results in at least moderate central canal and left lateral recess stenosis. Final read pending. Lumbar spine MRI showing enhancing lesions in T11, L2, L5 vertebral bodies and left transverse process of L5. Also present in right aspect of sacrum. Leena rning for neoplasm/osseous metastatic. Disc protrusion at L4-L5 causing moderate to severe spinal canal stenosis. Final read pending. Patient was treated with Toradol 15mg, IV, Gadvist 65Ml, IV and IVF. Admission Exam Per Admitting Provider Constitutional: WD/WN, vitals as above no acute distress Eyes: + anicteric sclerae ENMT: external ear and nose normal, oropharynx normal Neck: normal visual inspection and trachea midline Thyroid: normal thyroid Respiratory: normal respiratory effort, lungs clear to auscultation no cough Auscultation: no crackles, no rales, no rhonchi, no wheezes and no pleural rub Cardiovascular: RRR, no murmur, no edema Heart Sounds: normal S1 and normal S2 Extremities: no pedal edema Gastrointestinal (Abdomen): Inspection/Auscultation: normal bowel sounds; abdomen not distended Percussion/Palpation: + abdomen tender (mild, suprapubic region ) and abdomen soft; no hepatosplenomegaly Musculoskeletal: + midline tenderness in lumbar region. + paraspinal muscle tenderness in thoracic region. + left gluteal tenderness Skin: no rashes, warm and dry Psychiatric: A+Ox3, euthymic affect Principal Diagnosis Lumbar disc herniation, metastatic cancer of unknown origin Discharge Exam Constitutional well developed, well nourished and + thin; no acute distress Respiratory normal respiratory effort, lungs clear to auscultation Cardiovascular RRR, no murmur, no edema Gastrointestinal (Abdomen) normal bowel sounds, soft, nontender, no hepatosplenomegaly Musculoskeletal Midline tenderness to palpation in thoracic and lumbar region, mild paraspinal tenderness. ANterior tenderness over left sacral ala into inguinal canal. Skin no rashes, warm and dry Neurologic PERRL, EOMI, accommodation nl, no face palsy, no dysarthria Speech / Cognition: normal speech Motor/Sensory: no tremor and normal movement plantar and dorsiflexion of feet 5/5 bilaterally Discharge Data Allergies Allergy/AdvReac Type Severity Reaction Status Date / Time peanut Allergy Severe THROAT Verified 09/12/19 23:39 SWELLS, MOUTH DRYS UP peanut oil Allergy Severe THROAT Verified 09/12/19 23:39 SWELLS, MOUTH DRYS UP Consultations 09/12/19 23:57 ED Decision to Admit Stat 09/13/19 03:34 Consult Hematology Routine 09/13/19 10:07 Burn CD for patient Stat 09/13/19 19:37 Burn CD for patient Stat Ordered Studies 09/12/19 19:35 CT abd pelvis IV con only Stat CT lumbar spine wo con Stat 09/12/19 21:43 MR lumbar spine wo/w con Urgent 09/13/19 04:55 CT chest wo con Urgent Hospital Course (1) Back pain: Nilda Penny is a 24 yo F with no PMH who presented to the ED with back pain for 3 months that had recently worsened in the past 2 weeks to be sharp in nature and wake her up from sleep. During ED visit, abdominal and chest imaging revealed bilateral spiculated nodules in lung bases, enhancing lesions on MRI on T11, L2, L5 vertebral bodies and right sacral ala. ESR elevated, WBC elevated to 15k. HemeOnc consulted, opined that hematologic malignancy high on differential and will require SPEP, UPEP + bone biopsy for diagnosis. Local spine surgeon uncomfortable with cancer related biopsies and reconstruction; transferred to for continuation of care, diagnosis and management. (2) Lung nodule: (3) Abdominal pain: (4) Bone lesion: (5) Leukocytosis: (6) Fever: (7) Hypokalemia: (8) ADHD: Total Time Total Time Spent Total Time Spent (In Minutes): >30 Discharge Plan Discharge Items Patient Disposition: Transfer Acute Care Hospital Reason For Visit: ABDOMINAL PAIN Discharge Diagnosis: Abdominal pain, metastatic cancer of unknown origin Activity: Per Instructions section Non-emergency contact: Primary Care Provider and Oncologist Call non-emergency contact if: your symptoms worsen and your pain is not controlled Follow-up/Referrals: Angelita Alvarez MD [Resident] - PCP,NO [Primary Care Provider] - Diet: Regular Addtl Attending Provider Instructions: transferred to for diagnosis and management of new metastatic cancer of unknown origin Pending Studies at Discharge: No Stand-Alone Forms: My [employer] Skilled Items Patient informed of condition?: Yes DNR: No Discharge Level of Care: Other Communicable Disease: No Discharge Prognosis: Stable Lines: Peripheral IV Urinary Catheter: No Medications and DC Order Prescriptions: Continued dextroamphetamine-amphetamine [Adderall XR] 20 mg Capsule,Extended Release 24hr 20 mg PO DAILY RF: 0 ParaGard T 380A 380 square mm Intrauterine Device 380 mm2 INTRAUTERINE CONTINOUS RF: 0 Discharge Orders: Discharge Order (Routine); Ordered 09/13/19 Ordered By: Gerry Cary Admission Data Admit Date/Time: 09/13/19 02:40 Attending Provider: Momo Jean Admit Provider: Natali Myles Primary Care Provider: PCP,ALDA Other Providers: Sundar Baldwin ; Jose Lynn V. ; Angelita Alvarez Other Interventions: Discharge Summary Assessment (RN) Last Done: 09/13/19 20:47 DC Date/Time DO NOT enter until pt leaves facility: 09/13/19 22:15 Supervising Physician Co-Signing Physician Notes I personally examined the patient and verified all lazaro points of history and exam, discussed case, and agree with decision making with Dr Alvarez Resident Activity Tracking Resident Involvement: Resident Care Provided Care Provided: Adult Hospital Medicine
== END 2019-09-13 22:15 | disposition short-term general hospital (02) | DRG 552 ==
LOC: ED 18:34 → 2S 09-13 02:40 → SUATTDRO 09-13 02:40 → 2S 09-13 03:06

== ENCOUNTER 2022-04-16 13:47 | Observation (INO) ==
--- NOTE | 2022-04-16 14:53 | Obstetrical Progress Note ---
Date of Service April 16, 2022 Assessment & Plan (1) with 35 completed weeks gestation: (2) Status post fall: Plan Plan monitoring for 4 hours. Looks category one and very reassuring. Subjective Patient presents to labor and delivery at 35 weeks s/p fall for prolonged monitoring. Got up out of bed, tripped over a backpack and fell on hands and knees. She barely grazed her upper belly. NO vb, lof. Patient noted some very mild lower abdominal cramping but this is improving. Notes good fm. Just after the fall she noted really "aggressive movement" but baby has calmed down. Beckie is on lovenox for a hx of DVT with a PICC line while being treated for Hodgkins lymphoma. Last dose was last night. Physical Exam Constitutional: WD/WN, vitals as above Gastrointestinal (Abdomen): soft, gravid, nt, no bruising. Genitourinary: cx--deferred toco--rivas efm--130s wtih mod variability, accels to 160s, no decels Results & Data ([facility]) Vital Signs (Past 12 Hours) Vital Signs Temp Pulse Resp BP 04/16/22 14:05 37.1 C 18 04/16/22 13:55 94 H 105/55 L PG Care Time/CCT Total # of Minutes Spent Total Time Spent with Patient: Total time spent is greater than 50% in coordination of care (as documented) at patient's floor/unit and/or counseling patient: Coding Level of Care Code 66388 Office/Outpt Visit, Est Diagnoses with 35 completed weeks gestation Z3A.35 Status post fall Z91.81
--- NOTE | 2022-04-16 17:41 | Obstetrical Progress Note ---
Date of Service April 16, 2022 Assessment & Plan (1) Status post fall: (2) with 35 completed weeks gestation: Plan fetus category one. plan d/c at 6:30 after 4 hours of monitoring and 7 hours from fall. precautions reviewed. Admission and Anticipated Discharge Date Admission Date: April 16, 2022 Subjective Patient doing well, no concerns. Physical Exam Physical Exam: toco--rare efm--130s with mod variability, accels to 160s, no decels Results & Data ([facility]) Vital Signs (Past 12 Hours) Vital Signs Temp Pulse Resp BP 04/16/22 14:05 37.1 C 18 04/16/22 17:31 67 108/63 04/16/22 13:55 94 H 105/55 L PG Care Time/CCT Total # of Minutes Spent Total Time Spent with Patient: Total time spent is greater than 50% in coordination of care (as documented) at patient's floor/unit and/or counseling patient: Coding Level of Care Code INP/OBS EV SAME DAY LV 1,45MIN Diagnoses Status post fall Z91.81 with 35 completed weeks gestation Z3A.35
--- NOTE | 2022-04-17 15:08 | Discharge Summary ---
Date of Service April 17, 2022 Admission HPI Per Admitting Provider Patient is a 26yowf with iup at 35 weeks who underwent a fall at 11:30am. Notes mild lower abdominal cramping, no vb/lof. good movement. Patientt presents to labor and delivery for prolonged monitoring. The has been otherwise uncomplicated. Admission Exam (Per Admitting) Constitutional WD/WN, vitals as above Gastrointestinal (Abdomen) soft, nt, gravid, no bruising Psychiatric A+Ox3, euthymic affect Genitourinary cx--deferred toco--none efm--category one fetus, 130s wtih mod variability, accels to 160s, no decels. Hospital Course (1) Status post fall: (2) with 35 completed weeks gestation: Plan Patient presented to the hospital at about 2:30. She was monitored for 4 hours. Fetus always category one and reactive. She never had any significant contraction activity, bleeding or leaking, baby remained active. she was d/c 7 hours after the fall with precautions and to return for her regularly scheduled appointment. Coding Level of Care Code HOSP INP/OBS DISCH 30 MIN/LESS Diagnoses Status post fall Z91.81 with 35 completed weeks gestation Z3A.35
== END 2022-04-16 18:42 | disposition home or self-care (01) ==
LOC: 4S1 13:47 → OPB 13:47 → 4S1 13:49
DX: W19.XXXA Unspecified fall, initial encounter; Z3A.35 35 weeks gestation of pregnancy; R10.30 Lower abdominal pain, unspecified

== ENCOUNTER 2022-05-08 11:44 | Inpatient (IN) ==
--- NOTE | 2022-05-08 12:02 | History & Physical Report ---
Date of Service May 08, 2022 Assessment & Plan (1) Supervision of normal first : Plan: ROM at 2100 yesterday evening (16 hours ago). Plan to augment with Pitocin, as she is not having regular contractions - Admit to L&D for labor - Would like to get an epidural; consult anesthesiology (2) Positive GBS test: Plan: - Positive GBS on urine culture, plan to treat with Penicillin (3) Pulmonary emboli: Plan: - history of PE post removal of central line. Has been following with MFM. Was transitioned from Lovenox to heparin 5000 units sub Q BID, last dose 2100 yesterday evening (16 hours ago). Will continue to hold. Admission and Anticipated Discharge Date Admission Date: May 08, 2022 History of Present Illness Primary Care Provider: RICHARD Key Nilda is a 26 y/o female currently at 38 4/7 WGA with an SID 05/17/2022 as determined by LMP who is here for . Her was complicated by history of Hodgkin lymphoma treated with chemo in 2020 and PE after removal of central line. Was being seen by MFM. Lydia that she had ROM around 2100 yesterday evening. Nitrazine positive in office this morning. + contractions; + movement; + fluid loss; - bloody show External FHT and external uterine monitors used; Category 1 tracing; moderate FHT variability. Had regular appointments with OB. Labs: (10/10/2021) Blood type: O+ Antibody screen: Neg Rubella: Equivocal VDRL/RPR: Neg Gonorrhea: Neg Chlamydia: Neg HIV: Neg HbSAg: Neg GBS: positive Other screens: cfdna-low risk--mln neg cf/sma at [facility] 06/2021--akh gbs positive urine Allergies Allergy/AdvReac Type Severity Reaction Status Date / Time peanut Allergy Intermediate Dry Verified 05/08/22 10:47 throat, mouth and some swallowing difficulties peanut oil Allergy Intermediate Dry Verified 05/08/22 10:47 throat, mouth and some swallowing difficulties vancomycin Allergy Rash/Flushi Verified 05/08/22 10:47 ng Home Medications Medication Instructions Recorded Confirmed Type prenat.vits,mimi,cdc-ants-jdgxz 1 tab PO DAILY 07/31/21 05/08/22 History heparin (porcine) 5,000 unit/mL 5,000 unit subcut BID 05/08/22 05/08/22 History injection solution Patient History Medical History (Updated 05/08/22 @ 13:04 by Cora Julian DO) Abdominal pain Anemia Back pain Bone lesion Depression History of chemotherapy History of chicken pox Leukocytosis Lung nodule Osteomyelitis of lumbar spine Osteomyelitis of pelvis Ovarian cyst Pulmonary emboli as result from central line Seasonal allergies Surgical History History of removal of skin mole Port-A-Cath in place Was already removed S/P bronchoscopy Family History (Updated 10/02/21 @ 10:07 by Breann Macias) Grandmother (Paternal) Ovarian cancer Father Hypertension Kidney stone Grandfather (Paternal) Liver disease Kidney stone Mother Fibrocystic breast Denies family history of Breast cancer Colorectal cancer Social History (Updated 04/16/22 @ 14:02 by Mel Lyman RN) Smoking Status: Never smoker Second Hand Exposure: No; Hx Alcohol Use: No Hx Substance Use: No Preferred Language: Nepali Communication Ability: Effective Network Support Manager Required: No Beliefs That Will Affect Care: None marital status: marital status details: Melvin Penyn (29) [phone] Current Living Situation: Spouse Current Living Situation Comment: lives with spouse, dog current occupational status: student current occupation: Doctorate student at [employer] Feels Safe at Home: Yes Safety Concerns: Feels Safe At This Time Assistive Devices: None Review of Systems Denies fever, chills, sweats Denies shortness of breath, difficulty breathing, chest pain, palpitations, chest pressure. Denies breast pain. Denies dysuria. Denies headache or changes in vision. Physical Exam Physical Exam: General: Alert, oriented. No acute distress. Cardiac: Regular rate and rhythm, no murmurs/rubs/gallops. Respiratory: Clear to auscultation bilaterally a/p, no wheezes/rales/rhonchi. No increased work of breathing. Symmetrical chest rise. No respiratory distress. Abdomen: Gravid; + FHTs Pelvic: 1.5cm dilated, 50% effaced, -2 station Lower Extremities: No lower extremity edema or swelling. No deep calf pain. Lizabeth's negative bilaterally Supervising Physician Co-Signing Physician Notes Resident Physician Supervision Note: I interviewed and examined the patient. Discussed with Dr. Julian and agree with findings and plan as documented in the note. Any exceptions or clarifications are listed here: 26 yo G1 at 38 4/7 wga presents from the office after noting continued LOF since 9pm last evening. ROM confirmed in the office. On heparin [id number] for hx DVT, last dose 9pm. +FM; denies painful ctx, VB. VSS, fetus cat 1. SVE 1.5/50/-2. GBS+, will start pcn. Discussed w/ anesthesia and she is ok for epidural prn. Will start pit, EFW 6-7 Documented By: Luna Kuhn MD Resident Activity Tracking Resident Involvement: Resident Care Provided Care Provided: OB Delivery
[2022-05-08] MEDS ORDERED: OXYTOCIN 30 UNITS/500 ML BAG IV PRN ×2 (12:07→12:10)
[2022-05-08] MEDS ORDERED: LIDOCAINE 1% LOCAL 20 ML VIAL INFIL PRN (12:07)
[2022-05-08] MEDS ORDERED: PENICILLIN G POTASSIUM 6 MU in DEXTROSE 5% 250 ML IV STA (12:11)
[2022-05-08 13:00] LABS: Hematocrit (blood only) 31.4 % (37.0-47.0); Hemoglobin 9.8 g/dl (12.0-16.0); Mean Corpuscular Hemoglobin 22.6 pg (25.0-34.0); Mean Corpuscular Hgb Conc 31.2 g/dL (32.0-36.0); Mean Corpuscular Volume 72.4 fL (80.0-100.0); Mean Platelet Volume 10.3 fL (9.4-12.4); Platelet Count 347 K/uL (130-400); RDW Standard Deviation 39.2 fL (36.4-46.3); Red Blood Count 4.34 M/uL (4.20-5.40); White Blood Count 11.46 K/ul (4.8-10.8)
[2022-05-08] MEDS: LACTATED RINGER'S 1,000 ML IV PRN ×3 (13:54→21:08)
[2022-05-08] MEDS ORDERED: PENICILLIN G POTASSIUM 3 MU in DEXTROSE 5% 100 ML IV PRN (15:07)
--- NOTE | 2022-05-08 19:39 | Labor Progress Brief Note ---
Date of Service May 08, 2022 Subjective Getting more uncomfortable Assessment & Plan (1) Supervision of normal first : (2) Positive GBS test: (3) Pulmonary emboli: Plan 26 yo G1 at 38 4/7 wga admitted for prom VSS Fetus cat 1 Labor - forebag palpated and ruptured after discussing w/ pt, pit at 18, continue induction GBS+, pcn ordered desires epidural Admission and Anticipated Discharge Date Admission Date: May 08, 2022 Physical Exam Genitourinary: Manual OB Exam: + cervical dilation 2 cm, + cervical effacement 70%, + station -2 and + amniotic fluid (arom forebag) OB Exam Monitor Tracing: + external FHT monitor used, + external uterine monitor used (3) and + category I (120-125/mod/+accel/-decel) Results & Data ([facility]) Vital Signs (Past 12 Hours) Vital Signs Temp Pulse Resp BP 05/08/22 19:19 98.1 F 18 05/08/22 19:16 60 99/58 L 05/08/22 18:01 98.2 F 61 22 106/56 L 05/08/22 16:12 62 118/65 05/08/22 16:10 20 05/08/22 16:10 98.1 F 20 05/08/22 12:01 98.2 F 100 H 18 119/73 05/08/22 12:19 98.2 F Coding Level of Care Code None Diagnoses Supervision of normal first Z34.00 Positive GBS test B95.1 Pulmonary emboli I26.99
[2022-05-08] MEDS ORDERED: ePHEDrine sulfate 50 MG/ML AMP ONE (19:41)
[2022-05-08] MEDS ORDERED: fentaNYL 2MCG/ML ROPIVACAINE 1.25MG/ML 100 ML BAG EPI ONE (19:42)
[2022-05-08] MEDS ORDERED: fentaNYL citrate 100 MCG/2 ML VIAL ONE (19:42)
[2022-05-08] MEDS ORDERED: LIDOCAINE 2%/EPINEPHRINE 1:200,000 20 ML SDV ONE (19:42)
[2022-05-08] MEDS ORDERED: SODIUM CHLORIDE 0.9% INJ 10 ML VIAL ONE (19:42)
[2022-05-08] MEDS ORDERED: BUPIVACAINE 0.25% 30 ML VIAL ONE (19:42)
--- NOTE | 2022-05-08 20:04 | Anesthesiology Consultation ---
Date of Service May 08, 2022 Assessment & Plan (1) Encounter for pre-operative examination: Chart Review Chart Review: Acceptable Risk for Labor Epidural Consults Requested none ASA ASA2 Proposed Anesthesia Anesthesia Type: Labor Epidural Risk / Benefits Reviewed With: PT / POA / Parent / Guardian, Accepts Plan and Informed Consent Obtained History Height/Weight Height: 5 ft 5 in Weight: 66.075 kg Allergies Allergy/AdvReac Type Severity Reaction Status Date / Time peanut Allergy Intermediate Dry Verified 05/08/22 10:47 throat, mouth and some swallowing difficulties peanut oil Allergy Intermediate Dry Verified 05/08/22 10:47 throat, mouth and some swallowing difficulties vancomycin Allergy Rash/Flushi Verified 05/08/22 10:47 ng Medications Home Medications Medication Instructions Recorded Confirmed Last Taken prenat.vits,mimi,hzy-cyaa-jdptp 1 tab PO DAILY 07/31/21 05/08/22 05/07/22 heparin (porcine) 5,000 unit/mL 5,000 unit subcut BID 05/08/22 05/08/22 05/07/22 21:00 injection solution Active Medications Generic Name Dose Route Start Last Admin Trade Name Freq PRN Reason Stop Dose Admin Lactated Ringer's 1,000 mls @ 125 mls/hr 05/08/22 12:07 05/08/22 19:40 Lr IV 05/10/22 12:06 999 mls/hr .Q8H PRN Infusion L&D Protocol Protocol Penicillin G Potassium 3 mu/ 106 mls @ 100 mls/hr 05/08/22 15:07 05/08/22 18:35 Dextrose IV 05/18/22 15:06 100 mls/hr Q4H PRN Administration GBS(+) Until Delivery Oxytocin 30 units in 500 mls @ 18 mls/hr 05/08/22 12:10 05/08/22 19:05 Pitocin IV 05/10/22 12:09 1.08 units/hr .Q24H PRN 18 mls/hr Labor Induction/Augmentation Titration Protocol 1.08 UNITS/HR Past Medical History Medical History Abdominal pain Anemia Back pain Bone lesion Depression History of chemotherapy History of chicken pox Leukocytosis Lung nodule Osteomyelitis of lumbar spine Osteomyelitis of pelvis Ovarian cyst Pulmonary emboli as result from central line Seasonal allergies Exercise / Class Metabolic Activity II 4-5 Yardwork/Stairs/Walk up hill Past Family History Family History Grandmother (Paternal) Ovarian cancer Father Hypertension Kidney stone Grandfather (Paternal) Liver disease Kidney stone Mother Fibrocystic breast Denies family history of Breast cancer Colorectal cancer Past Surgical History Surgical History History of removal of skin mole Port-A-Cath in place Was already removed S/P bronchoscopy Past Anesthesia History No Hx of Anesthesia Complications and No Family Hx of Anesthesia Complications History of PONV No Hx of PONV and No Hx of Motion Sickness Social History Smoking Status: Never smoker Hx Alcohol Use: No alcohol intake frequency: holidays/special occasions only Hx Substance Use: No Physical Exam Vital Signs Last Vital Signs Temp 98.1 F 05/08/22 19:19 Pulse 64 05/08/22 20:00 Resp 18 05/08/22 19:19 BP 99/58 L 05/08/22 19:16 Pulse Ox 100 05/08/22 20:00 ENMT Mouth: no dentition abnormality Thyromental Distance: > or= 3.5 Finger Breadths Mallampati Class: II Neck normal visual inspection Respiratory normal respiratory effort Auscultation: lungs clear to auscultation bilaterally Cardiovascular Rate/Rhythm: regular rate and regular rhythm Testing Laboratory Results 05/08/22 12:34
[2022-05-08] MEDS ORDERED: NALBUPHINE HCL INJ 10 MG/ML AMP IV PRN (20:23)
[2022-05-08] MEDS ORDERED: ePHEDrine sulfate 50 MG/ML AMP IV PRN (20:23)
[2022-05-08] MEDS ORDERED: ONDANSETRON INJ 2 MG/ML 2 ML VIAL IV PRN (20:23)
[2022-05-08] MEDS ORDERED: NALOXONE HCL 1 MG in SODIUM CHLORIDE 0.9% 1000ML 1,000 ML IV PRN (20:23)
[2022-05-08] MEDS ORDERED: diphenhydrAMINE 50 MG/ML VIAL IV PRN (20:23)
[2022-05-08] MEDS ORDERED: NALOXONE HCL 0.4 MG/1 ML VIAL/CARP IV PRN (20:23)
[2022-05-08] MEDS ORDERED: fentaNYL 2MCG/ML ROPIVACAINE 1.25MG/ML 100 ML BAG EPI PRN (20:23)
--- NOTE | 2022-05-08 23:51 | Delivery Summary ---
Vaginal Delivery Summary Date of Service May 08, 2022 Vaginal Delivery Summary 2nd Degree LAC PREOPERATIVE DIAGNOSIS: 1. Single intrauterine at 38 4/7 wga 2. PROM 3. GBS+ 4. Hx Hodgkin Lymphoma 5. Hx DVT POSTOPERATIVE DIAGNOSIS: 1. Single intrauterine at 38 4/7 wga 2. PROM 3. GBS+ 4. Hx Hodgkin Lymphoma 5. Hx DVT 6. Delivered PROCEDURE: 1. Normal spontaneous vaginal delivery. SURGEON: Luna Kuhn MD ANESTHESIA: Epidural. ESTIMATED BLOOD LOSS: 300 mL FLUIDS: Continuous LR. URINE OUTPUT: None. COMPLICATIONS: None. CONDITION: Stable. INDICATIONS: 26 yo G1 presented for evaluation this morning following rupture of membranes last evening around 9pm. She was confirmed rom and 1cm. She was started on penicillin for GBS+ status and pitocin for induction. She underwent AROM of a forebag and received an epidural for pain control. She then progressed to complete and desired to push. FINDINGS: A viable male infant, weight pending with Apgars of 8 and 9 at 1 and 5 minutes respectively. SPECIMEN: Cord blood, placenta OPERATIVE REPORT: The patient progressed to 10 cm, 100% effaced and +2 station, pushed over intact perineum with anesthesia to deliver a viable male , weight and Apgars as above. Head of delivered in DEEDEE position. Loose nuchal cord was noted and reduced. Body and shoulders were delivered without difficulty. was delivered to maternal abdomen and nursing staff. Delayed cord clamping was performed for 60 seconds. Cord was clamped and cut. Cord blood was obtained. Placenta delivered spontaneously intact with 3-vessel cord. IV oxytocin and fundal massage were given for excellent hemostasis. Vagina, cervix, perineum, and placenta were inspected. A right vaginal tear and a second degree laceration were noted and repaired in the usual fashion individually with 3-0 vicryl. A small left sulcal abrasion was repaired using 3-0 vicryl. There was then excellent hemostasis. Sponge and needle counts correct x2. No sponges were left behind. Mother and stable in immediate period. [facility] Vaginal Delivery Charge Vaginal Delivery Codes: 99337 global code for the antepartum, delivery, and post- Delivery Type Details: 2nd Degree LAC
[2022-05-09] MEDS ORDERED: BENZOCAINE 20% AER SPR 82.5 GM CAN EXT PRN (00:11)
[2022-05-09] MEDS ORDERED: OXYTOCIN 30 UNITS/500 ML BAG IV PRN (00:11)
[2022-05-09] MEDS ORDERED: HYDROCORTISONE ACETATE 25 MG SUPP PR PRN (00:11)
[2022-05-09] MEDS ORDERED: DIPHTHERIA/TETANUS/PERTUSSIS 0.5mL SYR/VIAL (Age 7+yrs) IM ONE (00:11)
[2022-05-09] MEDS ORDERED: MEASLES, MUMPS & RUBELLA VIRUS VIAL SQ ONE (00:11)
[2022-05-09] MEDS ORDERED: ACETAMINOPHEN 325 MG TAB PO PRN (00:11)
[2022-05-09] MEDS: IBUPROFEN 600 MG TAB PO PRN ×3 (02:52→19:40)
--- NOTE | 2022-05-09 05:43 | Obstetrical Progress Note ---
Date of Service <Cora JenningsTereza ElielDO - Last Filed: 05/09/22 07:04> May 09, 2022 Assessment & Plan <Cora JenningsTereza ElielDO - Last Filed: 05/09/22 07:04> (1) Status post vaginal delivery: - continue OOB, ambulation, diet as tolerated - Delivered late last night, so plan to stay today <Luna Kuhn MD - Last Filed: 05/09/22 07:25> (1) Status post vaginal delivery: Subjective <Cora JulianDO - Last Filed: 05/09/22 07:04> Nilda is a 26 y/o female who is now PPD # 1 following spontaneous vaginal delivery at 38 4/7 weeks. Reports feeling well overall this morning. Mild abdominal cramping, pain well managed on analgesics. Voiding. Tolerating meals overnight and able to ambulate some. Some persistent lochia with some improvement this morning. Breast feeding. Review of Systems Denies fever, chills, sweats Denies shortness of breath, difficulty breathing, chest pain, palpitations, chest pressure. Denies breast pain. Denies dysuria. Denies headache or changes in vision. Physical Exam <Coar STereza Julian DO - Last Filed: 05/09/22 07:04> General: Alert, oriented. No acute distress. Cardiac: Regular rate and rhythm, no murmurs/rubs/gallops. Respiratory: Clear to auscultation bilaterally a/p, no wheezes/rales/rhonchi. No increased work of breathing. Symmetrical chest rise. No respiratory distress. Abdomen: Soft, nontender, nondistended. Uterus: Uterine fundus firm, palpable 3 cm below umbilicus. Lower Extremities: No lower extremity edema or swelling. No deep calf pain. Lizabeth's negative bilaterally. Results & Data ([facility]) <Cora Jane Julian DO - Last Filed: 05/09/22 07:04> Vital Signs (Past 12 Hours) Vital Signs Temp Pulse Pulse Resp BP BP Pulse Ox 05/09/22 02:55 36.6 C 65 20 96/61 L 99 05/09/22 01:45 36.8 C 18 05/09/22 01:15 18 05/09/22 00:45 18 05/09/22 00:30 18 05/09/22 00:15 18 05/09/22 00:00 20 05/08/22 23:45 18 05/08/22 19:19 36.7 C 18 05/09/22 02:00 68 98/57 L 05/09/22 01:46 82 98/55 L 05/09/22 01:30 71 104/62 05/09/22 01:15 67 98/53 L 05/09/22 01:00 66 100/56 L 05/09/22 00:45 67 106/58 L 05/09/22 00:30 61 101/54 L 05/09/22 00:16 58 L 107/53 L 05/09/22 00:05 63 99 05/09/22 00:00 66 99 05/09/22 00:01 65 123/59 L 05/08/22 23:55 71 100 05/08/22 23:50 76 98 05/08/22 23:45 99 05/08/22 23:45 67 05/08/22 23:45 63 112/62 05/08/22 23:40 72 99 05/08/22 23:35 66 99 05/08/22 23:30 62 99 05/08/22 23:25 59 L 99 05/08/22 23:20 68 98 05/08/22 23:15 63 98 05/08/22 23:10 74 99 05/08/22 23:05 100 05/08/22 23:05 58 L 05/08/22 23:05 62 94 05/08/22 23:00 124 H 100 05/08/22 22:55 61 100 05/08/22 22:52 55 L 120/55 L 05/08/22 22:50 64 100 05/08/22 22:45 91 H 96 05/08/22 22:40 64 98 05/08/22 22:35 58 L 99 05/08/22 22:36 59 L 117/60 05/08/22 22:30 69 100 05/08/22 22:25 61 100 05/08/22 22:20 67 100 05/08/22 22:15 69 100 05/08/22 22:10 71 100 05/08/22 22:05 59 L 100 05/08/22 22:06 73 102/62 05/08/22 22:00 52 L 100 02/02/23 21:55 57 L 100 05/08/22 21:51 52 L 104/51 L 05/08/22 21:50 50 L 100 05/08/22 21:45 52 L 100 05/08/22 21:40 58 L 100 05/08/22 21:35 70 100 05/08/22 21:30 63 99 05/08/22 21:25 99 H 99 05/08/22 21:22 65 116/71 05/08/22 21:20 79 99 05/08/22 21:15 61 100 05/08/22 21:10 67 100 05/08/22 21:06 59 L 107/55 L 05/08/22 21:05 67 100 05/08/22 21:00 66 100 05/08/22 20:55 79 100 05/08/22 20:50 63 111/56 L 100 05/08/22 20:47 66 116/64 05/08/22 20:45 62 100 05/08/22 20:40 99 05/08/22 20:40 57 L 05/08/22 20:40 60 102/56 L 05/08/22 20:38 63 102/58 L 05/08/22 20:36 65 98/51 L 05/08/22 20:35 51 L 100 05/08/22 20:34 63 109/62 05/08/22 20:32 115/59 L 05/08/22 20:30 99 05/08/22 20:30 59 L 05/08/22 20:30 53 L 105/54 L 05/08/22 20:28 64 105/58 L 05/08/22 20:25 55 L 99 05/08/22 20:26 59 L 109/54 L 05/08/22 20:24 60 102/64 05/08/22 20:21 68 115/56 L 05/08/22 20:20 63 100 05/08/22 20:15 74 99 05/08/22 20:10 74 100 05/08/22 20:05 76 96 05/08/22 20:00 64 100 05/08/22 19:55 59 L 100 05/08/22 19:50 60 100 05/08/22 19:45 58 L 100 05/08/22 19:40 63 100 05/08/22 19:16 60 99/58 L 05/08/22 18:01 36.8 C 61 22 106/56 L O2 Del Method 05/09/22 02:55 Room Air 05/09/22 01:45 05/09/22 01:15 05/09/22 00:45 05/09/22 00:30 05/09/22 00:15 05/09/22 00:00 05/08/22 23:45 05/08/22 19:19 05/09/22 02:00 05/09/22 01:46 05/09/22 01:30 05/09/22 01:15 05/09/22 01:00 05/09/22 00:45 05/09/22 00:30 05/09/22 00:16 05/09/22 00:05 05/09/22 00:00 05/09/22 00:01 05/08/22 23:55 05/08/22 23:50 05/08/22 23:45 05/08/22 23:45 05/08/22 23:45 05/08/22 23:40 05/08/22 23:35 05/08/22 23:30 05/08/22 23:25 05/08/22 23:20 05/08/22 23:15 05/08/22 23:10 05/08/22 23:05 05/08/22 23:05 05/08/22 23:05 05/08/22 23:00 05/08/22 22:55 05/08/22 22:52 05/08/22 22:50 05/08/22 22:45 05/08/22 22:40 05/08/22 22:35 05/08/22 22:36 05/08/22 22:30 05/08/22 22:25 05/08/22 22:20 05/08/22 22:15 05/08/22 22:10 05/08/22 22:05 05/08/22 22:06 05/08/22 22:00 05/08/22 21:55 05/08/22 21:51 05/08/22 21:50 05/08/22 21:45 05/08/22 21:40 05/08/22 21:35 05/08/22 21:30 05/08/22 21:25 05/08/22 21:22 05/08/22 21:20 05/08/22 21:15 05/08/22 21:10 05/08/22 21:06 05/08/22 21:05 05/08/22 21:00 05/08/22 20:55 05/08/22 20:50 05/08/22 20:47 05/08/22 20:45 05/08/22 20:40 05/08/22 20:40 05/08/22 20:40 05/08/22 20:38 05/08/22 20:36 05/08/22 20:35 05/08/22 20:34 05/08/22 20:32 05/08/22 20:30 05/08/22 20:30 05/08/22 20:30 05/08/22 20:28 05/08/22 20:25 05/08/22 20:26 05/08/22 20:24 05/08/22 20:21 05/08/22 20:20 05/08/22 20:15 05/08/22 20:10 05/08/22 20:05 05/08/22 20:00 05/08/22 19:55 05/08/22 19:50 05/08/22 19:45 05/08/22 19:40 05/08/22 19:16 05/08/22 18:01 <Luna Kuhn MD - Last Filed: 05/09/22 07:25> Co-Signing Physician Notes Resident Physician Supervision Note: I interviewed and examined the patient. Discussed with Dr. Julian and agree with findings and plan as documented in the note. Any exceptions or clarifications are listed here: PP1 s/p , doing well. VSS, exam benign and wnl. Needs to start ppx lovenox, scheduled to start at noon which is 12 hours after, will make sure is >4hrs after epidural pull. Continue routine pp care Documented By: Luna Kuhn MD Resident Activity Tracking <Cora Julian DO - Last Filed: 05/09/22 07:04> Resident Involvement: Resident Care Provided Care Provided: OB Delivery (Post )
--- NOTE | 2022-05-09 08:58 | Anesthesia Procedure Note ---
Date of Service May 09, 2022 Anesthesia Post Epidural Note Vital Signs Vital Signs: Temp Pulse Resp BP Pulse Ox O2 Del Method 97.9 F 65 20 96/61 L 99 05/09/22 02:55 05/09/22 02:55 05/09/22 02:55 05/09/22 02:55 05/09/22 02:55 05/09/22 02:55 Pain Intensity Abdomen: Pain Intensity: 4 Episiotomy/Laceration: Pain Intensity: 1 Notes Mental Status: alert / awake / arousable and participated in evaluation Nausea / Vomiting: adequately controlled Pain: adequately controlled Airway Patency, RR, SpO2: stable & adequate BP & HR: stable & adequate Hydration State: stable & adequate Neuraxial Anesthesia: was administered and sensory block is resolving Anesthetic Complications: no major complications apparent and Pt Satisfied with anesthetic care Epidural: Removed without complications and With tip intact
[2022-05-09] MEDS: FERROUS SULFATE 325 MG TAB PO SCH (09:06)
[2022-05-09] MEDS: DOCUSATE SODIUM 100 MG CAP PO SCH ×2 (09:06→19:41)
[2022-05-09] MEDS: PRENATAL VITAMIN 1 TAB PO SCH (09:06)
[2022-05-09] MEDS ORDERED: ENOXAPARIN INJ 40 MG/0.4 ML SYR SQ SCH (12:00)
[2022-05-09] MEDS: ENOXAPARIN INJ 40 MG/0.4 ML SYR SQ SCH (14:02)
[2022-05-09] MEDS ORDERED: bisacodyL 5 MG TABEC PO SCH (20:00)
--- NOTE | 2022-05-10 05:26 | Obstetrical Progress Note ---
Date of Service <Cora Jane Julian DO - Last Filed: 05/10/22 06:22> May 10, 2022 Assessment & Plan <Cora STereza Julian DO - Last Filed: 05/10/22 06:22> (1) Status post vaginal delivery: - continue OOB, ambulation, diet as tolerated - Discharge instructions reviewed; f/u for post visit in 6 weeks (2) Pulmonary emboli: - history of PE from post removal of central line - restarted in Lovenox yesterday for anticoagulation; plan to continue for 6 weeks post per [facility] Chronicity: chronic <Milena Mendez MD - Last Filed: 05/10/22 07:51> (1) Status post vaginal delivery: (2) Pulmonary emboli: Subjective <Cora Jane Julian DO - Last Filed: 05/10/22 06:22> Nilda is a 26 y/o female who is now PPD # 2 following spontaneous vaginal delivery at 38 4/7 weeks. Reports feeling well overall this morning. Mild abdominal cramping, pain well managed on analgesics. Voiding. Tolerating meals overnight and able to ambulate some. Some persistent lochia with some improvement this morning. Breast feeding. Review of Systems Denies fever, chills, sweats Denies shortness of breath, difficulty breathing, chest pain, palpitations, chest pressure. Denies breast pain. Denies dysuria. Denies headache or changes in vision. Physical Exam <Cora MichaelaTereza Julian DO - Last Filed: 05/10/22 06:22> General: Alert, oriented. No acute distress. Cardiac: Regular rate and rhythm, no murmurs/rubs/gallops. Respiratory: Clear to auscultation bilaterally a/p, no wheezes/rales/rhonchi. No increased work of breathing. Symmetrical chest rise. No respiratory distress. Abdomen: Soft, nontender, nondistended. Uterus: Uterine fundus firm, palpable 3 cm below umbilicus. Lower Extremities: No lower extremity edema or swelling. No deep calf pain. Myriam n's negative bilaterally. Results & Data ([facility]) <Cora Jane Julian DO - Last Filed: 05/10/22 06:22> Vital Signs (Past 12 Hours) Vital Signs Temp Pulse Resp BP Pulse Ox O2 Del Method 05/09/22 23:25 36.8 C 69 18 101/65 98 Room Air 05/09/22 19:35 36.6 C 71 18 97/62 L 98 Room Air <Milena Mendez MD - Last Filed: 05/10/22 07:51> Co-Signing Physician Notes Resident Physician Supervision Note: I interviewed and examined the patient. Discussed with Dr. Julian and agree with findings and plan as documented in the note. Any exceptions or clarifications are listed here: [ ] Documented By: Milena Mendez MD, FACOG Resident Activity Tracking <Cora Julian, - Last Filed: 05/10/22 06:22> Resident Involvement: Resident Care Provided Care Provided: OB Delivery (post )
[2022-05-10] MEDS: FERROUS SULFATE 325 MG TAB PO SCH (09:28)
[2022-05-10] MEDS: DOCUSATE SODIUM 100 MG CAP PO SCH (09:29)
[2022-05-10] MEDS: PRENATAL VITAMIN 1 TAB PO SCH (09:29)
[2022-05-10] MEDS: IBUPROFEN 600 MG TAB PO PRN (09:29)
[2022-05-10] MEDS: ENOXAPARIN INJ 40 MG/0.4 ML SYR SQ SCH (15:09)
[2022-05-11] MEDS ORDERED: bisacodyL 10 MG SUPP PR PRN (00:11)
== END 2022-05-10 16:30 | disposition home or self-care (01) | DRG 807 ==
LOC: 4S1 11:44 → 4E2 05-09 02:30

== ENCOUNTER 2025-01-12 08:26 | Inpatient (IN) ==
[2025-01-12 09:10] LABS: Hematocrit (blood only) 38.9 % (37.0-47.0); Hemoglobin 12.7 g/dl (12.0-16.0); Immature Granulocytes # (auto) 0.16 K/uL (0.01-0.20); Immature Granulocytes % (auto) 0.8 %; Mean Corpuscular Hemoglobin 25.2 pg (25.0-34.0); Mean Corpuscular Volume 77.3 fL (80.0-100.0); Platelet Count 299 K/uL (130-400); RDW Standard Deviation 39.6 fL (36.4-46.3); Red Blood Count 5.03 M/uL (4.20-5.40); White Blood Count 20.76 K/ul (4.8-10.8)
--- NOTE | 2025-01-12 09:14 | Emergency Department Note ---
Impression & Plan Hypomagnesemia, Hypokalemia, Hypocalcemia, Muscle spasm ED Provider Note NAME: JAIR AKHTAR AGE: 29 SEX: F : 1995 ARRIVES VIA: Walk-In INFORMANT: Patient, ED PROVIDER(S): Abdi Harrington MD CHIEF COMPLAINT: Numbness, tingling HPI: this is a 29-year-old female presents for numbness/tingling. Patient reports prolonged history of similar symptoms in which her hands, legs and body have numbness, tingling and occasionally lock up. She notes this is exacerbated by breast-feeding. She notes multiple month history of this. She was seen in the ER previously for this as well and got fluids/steroids which improved her symptoms. She reports some slight chest tightness today when she was driving. 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 Otherwise no weakness, slurred speech is noted. No chest pain or shortness of breath ROS: See above HPI for pertinent positives & negatives. A total of 10 systems reviewed and were otherwise negative. PAST MEDICAL HISTORY: See Below PAST SURGICAL HISTORY: See Below FAMILY HISTORY: See Below SOCIAL HISTORY: See Below HOME MEDICATIONS: See Below ALLERGIES: See Below VITALS: See Below PHYSICAL EXAMINATION: General: resting comfortably in no acute distress Head: Normocephalic and atraumatic Eyes: Normal inspection, extraocular muscles intact Ear, nose, throat: Normal external exam Neck: Normal range of motion Respiratory: lungs clear to auscultation bilaterally Cardiovascular: Regular rate/rhythm, no murmur GI: soft, nontender, no guarding or rebound Extremities: nontender, moves all extremities Neuro: The patient awake and alert, appropriately conversive, no focal deficits, symmetric faces Skin: Warm, dry, and intact MEDICAL DECISION MAKING: this is a 29-year-old female seen for numbness/tingling. Patient does appear clinically well this time without neurologic deficits. However patient has excruciating numbness/tingling as well as hand locking up symptoms. This happened over the course of multiple months. Patient had previous CTA imaging which was negative. This time she has no neurologic deficits suggest stroke, LVO, intracranial hemorrhage. After discussion patient will defer this testing. - Otherwise appears significant normal, WBC count is 20.76. She has critically low potassium of 2.4, phosphorus at 1.5, calcium 0.9 magnesium at 1. - Will replete magnesium prior to repletion of potassium and other electrolytes. - At this time there appears to explanation of patient's muscle spasm symptoms however no clear cause for why they are recurrent. Will admit the patient for repletion as well as further workup - Patient comfortable with this plan. Differential diagnosis: Dehydration, electrolyte disturbance, adrenal dysfunction, stroke, LVO, hemorrhage, anxiety Diagnostics interpreted by me: ECG: ECG independently interpreted by me with normal sinus rhythm, rate of 78, right axis deviation, normal MS, normal QRS, normal QTc, no ST segment elevations consistent with STEMI criteria Cardiac Monitoring: An order was placed for continuous cardiac monitoring. The monitor shows a rate of 86 with sinus rhythm. Past Med/Surg History Problem List (Updated 01/12/25 @ 17:25 by Abdi Harrington MD) Muscle spasm (Acute) Hypocalcemia (Acute) Hypokalemia (Acute) Hypomagnesemia (Acute) History of DVT (deep vein thrombosis) Neuropathy Hypophosphatemia Hypophosphatasia Encounter for assessment Encounter for induction of labor Anemia affecting with 30 completed weeks gestation Early stage of Encounter for anatomic survey Supervision of normal intrauterine in multigravida History of cervical spinal surgery Left hand paresthesia with neck pain-pt denies change or worsening Cervical radiculopathy at C6 Herniated nucleus pulposus, C5-6 left Lt arm numbness Cervical pain (~06/02/23) Carrier of group B Streptococcus Vasovagal syncope 2012-kathy hasn't happened in years 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 2020, no longer on blood thinners ADHD Medical History Vaginal discharge during Vasovagal syncope no issues since 2017 Lymphocyte-rich classical Hodgkin lymphoma dx 06/01/20, chemo-last tx 11/23/20; f[facility]u [facility] History of chemotherapy Anemia hx-during chemo and Depression post-chemo, no current issues Seasonal allergies History of chicken pox Osteomyelitis of pelvis "initial dx before dx of lymphoma- unsure if she ever really had this" Osteomyelitis of lumbar spine "initial dx before dx of lymphoma- unsure if she ever really had this" Back pain hx-due to lymphoma in her spine Leukocytosis hx-w/lymphoma Lung nodule due to her lymphoma in 2020 Bone lesion found in 2019, led to lymphoma dx. Surgical History S/P cervical disc replacement History of removal of Port-a-Cath History of removal of skin mole x3 S/P bronchoscopy x2; also had mediastenoscopy which dx her lymphoma Family History Grandmother (Paternal) Ovarian cancer Father Hypertension Kidney stone Grandfather (Paternal) Liver disease Kidney stone Mother Fibrocystic breast Denies family history of Breast cancer Colorectal cancer Social History Smoking Status: Never smoker Second Hand Exposure: No; Do You Dip or Chew Tobacco: No; Hx Alcohol Use: Yes Alcohol type: beer Alcohol Intake Frequency Comment: No alcohol during Hx Substance Use: No Preferred Language: Iranian Communication Ability: Effective Hearing Ability: Normal Neurodiagnostic Technician Required: No Beliefs That Will Affect Care: None marital status: marital status details: Melvin Akhtar (31) [phone] Current Living Situation: Spouse Current Living Situation Comment: Patient lives with her spouse, son, and a dog current occupational status: employed current occupation: School Psychologist Other Information That Helps Us Care for You: No Feels Safe at Home: No Is there a partner from a previous relationship who is making you feel unsafe now?: No Any Concerns about Your Family Situation: No Would You Like to Speak to Someone About Your Situation: No Safety Concerns: Feels Safe At This Time Diet: regular Dental Care, Regularly: Yes Gender Identity: Female Assistive Devices: None Allergies Allergies Allergy/AdvReac Type Severity Reaction Status Date / Time nut - unspecified Allergy Intermediate Anaphylaxis Verified 09/13/24 07:52 peanut Allergy Intermediate Dry Verified 09/13/24 07:52 throat, mouth and some swallowing difficulties peanut oil Allergy Intermediate Dry Verified 09/13/24 07:52 throat, mouth and some swallowing difficulties tree nut Allergy Intermediate Swelling Verified 09/13/24 07:52 of Lip/Tongue/Throat vancomycin Allergy Intermediate Rash/Flushi Verified 09/13/24 07:52 ng Home Meds Home Medications Medication Instructions Recorded Confirmed epinephrine 0.3 mg/0.3 mL 0.3 ml IM DIRECTED PRN 02/05/24 01/12/25 injection, auto-injector (EpiPen) Anaphylaxis ferrous sulfate 325 mg (65 mg 325 mg PO DAILY 09/01/24 01/12/25 iron) tablet magnesium oxide 0 mg PO BID 01/12/25 01/12/25 potassium chloride 20 mEq 0 meq PO BID 01/12/25 01/12/25 tablet,extended release(part/cryst) (Klor-Con M) Results & Data (ED) Vital Signs Vital Signs - 24 hr 01/12/25 08:28 01/12/25 08:59 01/12/25 08:59 Temperature 36.8 C Temperature Source Temporal Artery Scan Pulse Rate 93 H 83 Pulse Rate from SpO2 Sensor Pulse Rhythm Regular Regular Respiratory Rate 20 16 Respiratory Effort / Characteristics Non-Labored Spontaneous Respiratory Depth Normal Respiratory Pattern Regular Blood Pressure Blood Pressure Mean Pulse Oximetry 99 98 98 Oxygen Delivery Method Room Air Room Air Room Air Sepsis Recent Fever Within 48 Hours No Sepsis New/Unexplained Change in Mental Status No Sepsis Action Taken by Nursing No Action Required 01/12/25 09:17 01/12/25 09:36 01/12/25 10:12 Temperature Temperature Source Pulse Rate 90 74 79 Pulse Rate from SpO2 Sensor 74 79 Pulse Rhythm Respiratory Rate 21 15 Respiratory Effort / Characteristics Respiratory Depth Respiratory Pattern Blood Pressure 107/60 110/67 Blood Pressure Mean 75 81 Pulse Oximetry 97 99 Oxygen Delivery Method Room Air Room Air Sepsis Recent Fever Within 48 Hours Sepsis New/Unexplained Change in Mental Status Sepsis Action Taken by Nursing 01/12/25 10:30 01/12/25 11:00 01/12/25 11:30 Temperature Temperature Source Pulse Rate 70 71 75 Pulse Rate from SpO2 Sensor 71 74 Pulse Rhythm Respiratory Rate 19 17 17 Respiratory Effort / Characteristics Respiratory Depth Respiratory Pattern Blood Pressure 111/68 107/71 116/72 Blood Pressure Mean 82 83 86 Pulse Oximetry 98 100 99 Oxygen Delivery Method Room Air Room Air Sepsis Recent Fever Within 48 Hours Sepsis New/Unexplained Change in Mental Status Sepsis Action Taken by Nursing 01/12/25 12:00 Temperature Temperature Source Pulse Rate Pulse Rate from SpO2 Sensor Pulse Rhythm Respiratory Rate Respiratory Effort / Characteristics Respiratory Depth Respiratory Pattern Blood Pressure 105/84 Blood Pressure Mean 96 Pulse Oximetry Oxygen Delivery Method Sepsis Recent Fever Within 48 Hours Sepsis New/Unexplained Change in Mental Status Sepsis Action Taken by Nursing Laboratory Data 01/12/25 08:50 01/12/25 09:50 Lab Results 01/12/25 01/12/25 01/12/25 Range/Units 08:50 09:37 09:50 WBC 20.76 H (4.8-10.8) K/ul RBC 5.03 (4.20-5.40) M/uL Hgb 12.7 (12.0-16.0) g/dl Hct 38.9 (37.0-47.0) % MCV 77.3 L (80.0-100.0) fL MCH 25.2 (25.0-34.0) pg MCHC 32.6 (32.0-36.0) g/dL RDW Std Deviation 39.6 (36.4-46.3) fL RDW Coeff of Franci 14.2 (11.5-14.5) % Plt Count 299 (130-400) K/uL MPV 10.6 (9.4-12.4) fL Immature Gran % (Auto) 0.8 % Neut % (Auto) 87.6 % Lymph % (Auto) 6.5 % [place] % (Auto) 4.7 % Eos % (Auto) 0.1 % Baso % (Auto) 0.3 % Neut # (Auto) 18.20 H (1.40-6.50) K/uL Lymph # (Auto) 1.34 (1.20-3.40) K/uL [place] # (Auto) 0.97 H (0.11-0.59) K/uL Eos # (Auto) 0.03 (0.00-0.50) K/uL Baso # (Auto) 0.06 (0.00-0.20) K/uL Immature Gran # (Auto) 0.16 (0.01-0.20) K/uL Sodium Cancelled 141 Potassium Cancelled 2.4 L* Chloride Cancelled 104 Carbon Dioxide Cancelled 29 Anion Gap Cancelled 8 BUN Cancelled 10 Creatinine Cancelled 0.79 Est Cr Clr Drug Dosing Cancelled 91.4 eGFR Cancelled 102.50 BUN/Creatinine Ratio Cancelled 12.7 Glucose Cancelled 83 Calcium Cancelled 7.6 L Ionized Calcium 0.90 L (1.12-1.32) mmol/L Phosphorus Cancelled 1.5 L* Magnesium Cancelled 1.0 L Total Bilirubin Cancelled 0.5 AST Cancelled 17 ALT Cancelled 15 Alkaline Phosphatase Cancelled 95 Total Protein Cancelled 6.8 Albumin Cancelled 3.8 Globulin Cancelled 3.0 Albumin/Globulin Ratio Cancelled 1.3 TSH Cancelled 1.132 Administered Medications Discontinued Medications Magnesium Sulfate/Dextrose (Magnesium Sulfate / D5w) 1 gm in 100 mls @ 200 mls/hr IV Q30M ANTONIO Stop: 01/12/25 11:38 Last Infusion: 01/12/25 12:04 Dose: Infused Documented By: Admin: 01/12/25 11:32 Dose: 200 mls/hr Documented By: Infusion: 01/12/25 11:27 Dose: Infused Documented By: Admin: 01/12/25 10:57 Dose: 200 mls/hr Documented By: Potassium Phosphate 15 mmol/ (Sodium Chloride) 255 mls @ 88 mls/hr IV ONE STA Stop: 01/12/25 15:04 Last Infusion: 01/12/25 16:03 Dose: Infused Documented By: Admin: 01/12/25 12:31 Dose: 88 mls/hr Documented By: CHIQUITA Discharge Plan Visit Data Chief Complaint: Neuro Symptoms/Deficit Stated Complaint: NUMBNESS, ALL OVER, CHEST CONSTRICTING, WEAKNESS ED Provider: Abdi Harrington Discharge Problem: Hypomagnesemia, Hypokalemia, Hypocalcemia, Muscle spasm Patient Disposition: Admitted As Inpatient Condition: Fair
[2025-01-12 10:37] LABS: Alanine Aminotransferase 15.0 U/L (7-52); Albumin Globulin Ratio 1.3 (0.9-2); Albumin Level 3.8 gm/dl (3.4-5.0); Alkaline Phosphatase 95.0 U/L (34-104); Anion Gap 8.0 (3-11); Bilirubin,Total 0.5 mg/dl (0.2-1.0); Blood Urea Nitrogen 10.0 mg/dl (6-23); Calcium 7.6 mg/dl (8.6-10.3); Carbon Dioxide 29.0 mmol/L (21-32); Chloride 104.0 mmol/L (98-107); Creatinine Clr Calc Pharmacy 91.4 ml/min; Globulin 3.0 gm/dl (2.5-4.0); Glucose 83.0 mg/dl (70-99(Fasting)); Magnesium 1.0 mg/dl (1.7-2.4); Potassium 2.4 mmol/L (3.5-5.1); Sodium 141.0 mmol/L (136-145); Total Protein 6.8 gm/dl (6.0-8.3)
[2025-01-12 10:45] LABS: Thyroid Stimulating Hormone 1.132 uIu/ml (0.300-4.500)
[2025-01-12] MEDS: MAGNESIUM SULFATE / D5W 1 GM/100 ML BAG IV SCH (10:57)
[2025-01-12] MEDS ORDERED: POTASSIUM PHOS 3 MMOL/1 ML INFUSION IV STA (12:08)
[2025-01-12] MEDS: POTASSIUM PHOSPHATE 15 MMOL in SODIUM CHLORIDE 0.9% 250 ML IV STA (12:31)
--- NOTE | 2025-01-12 15:02 | History & Physical Report ---
Date of Service January 12, 2025 Assessment & Plan (1) Hypokalemia: (2) Hypomagnesemia: (3) Hypophosphatemia: (4) Neuropathy: (5) History of DVT (deep vein thrombosis): Plan ##hypomagnesemia|hypokalemia|hypocalcemia|hypophosphatasia -Magnesium level 1.0, repleted with 2 grams IV -K level 2.4 -Phosphorous 1.5 -repleted with potassium phosphate 15 Mmol -repeat BMP, MG, Phos -Ca 7.6 -PTH, Vit D, Vit D 1, 25 -24 hour urine K -oral Mg, K, Calcium supplementation per endocrinology recommendation -EKG with low voltage in setting of hypokalemia, repeat EKG in am -trend electrolytes in am ##Neuropathy of bilateral arms, hands, face -possible etiology of electrolyte abnormalities -cervical spine assessment benign on exam -lyme's test -TSH normal ##4 months post state -has not resumed menstruation -has not resumed sexual activity or had visit -urine test -currently lactating, supplied with breast pump ##leukocytosis-without overt s/s of infection -WBCs 20.76 -pro-calcitonin -UA -trend CBC ##history of DVT/PE -reported provoked from discontinuation of previous PICC line with completion of AC for 3 months -on Lovenox during and was to complete X 3m -DVT prophylaxis with Lovenox History of Present Illness Chief Complaint: Numbness, tingling of bilateral upper arms, hands and face with correlating hand jose angel. Primary Care Provider: [facility] Patient is a 29-year-old female with past medical history significant for Hodgkin's lymphoma, history of provoked pulmonary embolism related to PICC line DVT, history of suspected osteomyelitis of left hip although there was suspicion her lesion was related to her later diagnosis of Hodgkin's lymphoma that presented to [facility] emergency department with complaints of numbness and tingling in her bilateral upper arms, hands and face that started while she was driving today. She has been having similar symptoms over the course of the past few months that have been intermittent. Aggravation of symptoms are provoked by her breast-feeding where she notices that the numbness and tingling in her hands worsens and she has hand contractions as well. She endorses there is always some level of neuropathy in her hands and upper arms. This did prompt a recent ER visit to [facility] on the date of 11/18/24 where she had an unremarkable workup including negative CT of the head, CTA of the head and neck and CT venogram. She is 4 months with uneventful spontaneous vaginal delivery on 09/13/24. She has been successfully with more than adequate supply of breast milk. She has not had resumption of her menstrual period post and has not had a menstrual period since December of 2023. She denies fever, chills, blood in breast milk, abnormal breast d/c or mastitis related symptoms. Her Hodgkin's lymphoma was treated at [facility] for HL in 2020 with ABVD x 6 cycles to full remission. She still follows with [facility] for lab surveillance. Review of her labs on her phone via [employer] in 11/2024 reveals no electrolyte abnormalities. She had previous C5-C6 disc replacement on 06/02/23 and states she has no cervical pain, loss of bowel/bladder function or weakening of upper arms/lower legs. Reports since she was last seen at [facility] in 11/2024 she started taking an OTC potassium and magnesium oral supplementation due to identified low K/Mg level with that visit. She had one remote episode of diarrhea last week she attributes to a transient GI illness as a surrounding family member was also ill. She was drinking Pedialyte/power aid at that time. She denies diuretic use or PPI prescription. States while she has been in the ED she notices her left arm locking up when the blood pressure cuff inflates. 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 Reported hx of COVID 4- weeks ago. Mild migraine last week that she took over the counter medication for which helped. She also recently ingested a peanut butter cookie 3 weeks ago and d/t allergy she was treated with oral steroids, Benadryl and EpiPen. Allergies Allergy/AdvReac Type Severity Reaction Status Date / Time nut - unspecified Allergy Intermediate Anaphylaxis Verified 09/13/24 07:52 peanut Allergy Intermediate Dry Verified 09/13/24 07:52 throat, mouth and some swallowing difficulties peanut oil Allergy Intermediate Dry Verified 09/13/24 07:52 throat, mouth and some swallowing difficulties tree nut Allergy Intermediate Swelling Verified 09/13/24 07:52 of Lip/Tongue/Throat vancomycin Allergy Intermediate Rash/Flushi Verified 09/13/24 07:52 ng Home Medications Medication Instructions Recorded Confirmed Type epinephrine 0.3 mg/0.3 mL 0.3 ml IM DIRECTED PRN 02/05/24 01/12/25 History injection, auto-injector (EpiPen) Anaphylaxis ferrous sulfate 325 mg (65 mg 325 mg PO DAILY 09/01/24 01/12/25 History iron) tablet magnesium oxide 0 mg PO BID 01/12/25 01/12/25 History potassium chloride 20 mEq 0 meq PO BID 01/12/25 01/12/25 History tablet,extended release(part/cryst) (Klor-Con M) Past Med/Surg History Problem List (Updated 01/12/25 @ 17:25 by Abdi Harrington MD) Muscle spasm (Acute) Hypocalcemia (Acute) Hypokalemia (Acute) Hypomagnesemia (Acute) History of DVT (deep vein thrombosis) Neuropathy Hypophosphatemia Hypophosphatasia Encounter for assessment Encounter for induction of labor Anemia affecting with 30 completed weeks gestation Early stage of Encounter for anatomic survey Supervision of normal intrauterine in multigravida History of cervical spinal surgery Left hand paresthesia with neck pain-pt denies change or worsening Cervical radiculopathy at C6 Herniated nucleus pulposus, C5-6 left Lt arm numbness Cervical pain (~06/02/23) Carrier of group B Streptococcus Vasovagal syncope 2012-kathy hasn't happened in years 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 2020, no longer on blood thinners ADHD Medical History Vaginal discharge during Vasovagal syncope no issues since 2017 Lymphocyte-rich classical Hodgkin lymphoma dx 06/01/20, chemo-last tx 11/23/20; f/u @[facility] History of chemotherapy Anemia hx-during chemo and Depression post-chemo, no current issues Seasonal allergies History of chicken pox Osteomyelitis of pelvis "initial dx before dx of lymphoma- unsure if she ever really had this" Osteomyelitis of lumbar spine "initial dx before dx of lymphoma- unsure if she ever really had this" Back pain hx-due to lymphoma in her spine Leukocytosis hx-w/lymphoma Lung nodule due to her lymphoma in 2020 Bone lesion found in 2019, led to lymphoma dx. Surgical History S/P cervical disc replacement History of removal of Port-a-Cath History of removal of skin mole x3 S/P bronchoscopy x2; also had mediastenoscopy which dx her lymphoma Family History Grandmother (Paternal) Ovarian cancer Father Hypertension Kidney stone Grandfather (Paternal) Liver disease Kidney stone Mother Fibrocystic breast Denies family history of Breast cancer Colorectal cancer Social History Smoking Status: Never smoker Second Hand Exposure: No; Do You Dip or Chew Tobacco: No; Hx Alcohol Use: Yes Alcohol type: beer Alcohol Intake Frequency Comment: No alcohol during Hx Substance Use: No Preferred Language: Occitan Communication Ability: Effective Hearing Ability: Normal Health Information Specialist Required: No Beliefs That Will Affect Care: None marital status: marital status details: Melvin Penny (31) [phone] Current Living Situation: Spouse Current Living Situation Comment: Patient lives with her spouse, son, and a dog current occupational status: employed current occupation: School Psychologist Feels Safe at Home: No Is there a partner from a previous relationship who is making you feel unsafe now?: No Diet: regular Dental Care, Regularly: Yes Gender Identity: Female Assistive Devices: None Review of Systems Constitutional: denies fever, chills, anorexia or excess thirst Gastrointestinal: +diarrhea one week ago lasting one day Neurologic: +numbness/tingling BL upper arms, hands and face Physical Exam Physical Exam: GENERAL APPEARANCE: A&O. Sitting comfortably on stretcher. NAD. SKIN: Normal color without rashes or lesions. Normal turgor. HEENT: Head AT/NC. Buccal mucosa is moist and pink. NECK: No jugular venous distention. No thyroid enlargement. There is no lymphadenopathy. HEART: RRR without m/g/r LUNGS: Normal inspiratory effort. CTA without w/r/r ABDOMEN: No guarding or rigidity. Normoactive BS in all four quadrants. Abdomen soft and NT. MSK: No bony gross/deformities throughout. ROM intact. EXTREMITIES: No edema, No peripheral cyanosis. Numbness/tingling BL hands, fingers to palpation. Neuro: CN 2-12 grossly intact. No focal neuro deficits PSYCHIATRIC: Normal affect. Eye contact is good. Speech is normal rate and content. Responses are appropriate. Results & Data Results & Data Vital Signs (Past 12 Hours) Vital Signs Temp Pulse Resp BP Pulse Ox O2 Del Method 01/12/25 14:42 73 19 103/65 98 Room Air 01/12/25 14:00 74 16 115/47 L 01/12/25 13:38 67 01/12/25 13:00 65 14 119/79 01/12/25 12:39 70 17 114/72 01/12/25 12:00 105/84 01/12/25 11:30 75 17 116/72 99 01/12/25 11:00 71 17 107/71 100 Room Air 01/12/25 10:30 70 19 111/68 98 Room Air 01/12/25 10:12 79 15 110/67 99 Room Air 01/12/25 09:36 74 21 107/60 97 Room Air 01/12/25 09:17 90 01/12/25 08:59 83 16 98 Room Air 01/12/25 08:59 98 Room Air 01/12/25 08:28 36.8 C 93 H 20 99 Room Air Laboratory Results Review of labs Code Status & VTE Plan Code Status FULL CODE VTE Prophylaxis Plan VTE Prophylaxis will be ordered: Yes Supervising Physician Co-Signing Physician Notes Patient was seen and examined independently I discussed the case with Raquel RAMOS I reviewed pertinent past medical social family history and also the plan of care and agree with the plan of care. Patient presented with perioral paresthesias and some spasms of her hand this is similar to when she had low electrolytes in the past. Patient was found to be profoundly hypocalcemic hypokalemic hypophosphatemic and hypomagnesemic. This is similar to an emergency room presentation she had in November. She denies any recent dietary discretion nausea vomiting diarrhea. She does not take any [id number] medications or supplements. She states that between her last ER visit when she had low electrolytes and now she did have labs checked as an outpatient for follow-up with [facility] as she is a lymphoma survivor. Those labs were normal according to the patient she did complain of a headache about a week prior that resolved. Physical exam is completely unremarkable The patient appeared well nourished and normally developed. Vital signs as documented. Head exam is normocephalic atraumatic Neck is without JVD, thyromegaly, or carotid bruits. Lungs are clear to auscultation, no focal loss of breath sounds Cardiac exam, Rhythm is regular.. No murmurs, rubs or gallops. Abdominal exam reveals normal bowel sounds, soft non tender, no masses Extremities are nonedematous and both pedal pulses are present Neurologic exam is alert and oriented, no focal loss of strength or sensation Skin is without bruises or rashes Psychologically is without concerns for anxiety or depression.. Assessment profound electrolyte abnormalities with symptomatic hypocalcemia. Will replete electrolytes. Have endocrine and nephrology follow-up. Evaluate for etiologies of this profound change. Any exceptions will be noted below PG Care Time/CCT Total # of Minutes Spent Total Time Spent with Patient: Total time spent is greater than 50% in coordination of care (as documented) at patient's floor/unit and/or counseling patient: Coding Level of Care Code 94650 INT INP/OBS CARE 3/75MIN Diagnoses Hypokalemia E87.6 Hypomagnesemia E83.42 Hypophosphatemia E83.39 Neuropathy G62.9 History of DVT (deep vein thrombosis) Z86.718
--- NOTE | 2025-01-12 15:16 | Electrocardiogram Report ---
Test Reason : Blood Pressure : */* mmHG Vent. Rate : 78 BPM Atrial Rate : 78 BPM P-R Int : 130 ms QRS Dur : 80 ms QT Int : 396 ms P-R-T Axes : * 132 1 degrees QTcB Int : 451 ms Normal sinus rhythm Right axis deviation Low voltage QRS Nonspecific ST and T wave abnormality Abnormal ECG When compared with ECG of 18-Nov-2024 17:33, KS interval has increased Vent. rate has increased by 28 bpm Confirmed by Jak Manning ([id number]) on 01/12/2025 3:15:53 PM Referred By: REFERRED SELF Confirmed By: Jak Manning
[2025-01-12] MEDS ORDERED: ONDANSETRON INJ 2 MG/ML 2 ML VIAL IV PRN (16:00)
[2025-01-12] MEDS ORDERED: POLYETHYLENE (MIRALAX) 17 GM PACK PO PRN (16:00)
[2025-01-12] MEDS ORDERED: ACETAMINOPHEN 325 MG TAB PO PRN (16:00)
[2025-01-12] MEDS ORDERED: MELATONIN 3 MG TAB PO PRN (16:00)
[2025-01-12] MEDS: ENOXAPARIN INJ 40 MG/0.4 ML SYR SQ SCH (17:24)
[2025-01-12] MEDS: POT PHOSPHATE MONOBASIC W/ SOD TAB PO SCH (17:25)
[2025-01-12] MEDS: MAGNESIUM OXIDE 400 MG TAB PO SCH (17:25)
[2025-01-12 17:48] LABS: Anion Gap 9.0 (3-11); Blood Urea Nitrogen 8.0 mg/dl (6-23); Calcium 8.0 mg/dl (8.6-10.3); Carbon Dioxide 28.0 mmol/L (21-32); Chloride 105.0 mmol/L (98-107); Creatinine Clr Calc Pharmacy 100.3 ml/min; Glucose 98.0 mg/dl (70-99(Fasting)); Magnesium 1.9 mg/dl (1.7-2.4); Sodium 142.0 mmol/L (136-145)
[2025-01-12 17:52] LABS: Appearance Urine Clear (Clear); Bacteria Urine Automated None Seen (None Seen); Glucose Urine UA Negative (Negative); RBC Urine Automated 0-2 /hpf (0-2)
[2025-01-12 18:02] LABS: Potassium 2.4 mmol/L (3.5-5.1)
[2025-01-12] MEDS: POTASSIUM CHLORIDE / WTR 10 MEQ/100 ML PLCT IV SCH (19:22)
[2025-01-12] MEDS: CALCIUM CARBONATE 1,250 MG/5 ML UDC PO SCH (19:55)
[2025-01-12] MEDS ORDERED: POTASSIUM CHLORIDE CRTAB 20 MEQ TABCR PO SCH (21:00)
[2025-01-12] MEDS: POTASSIUM CHLORIDE CRTAB 20 MEQ TABCR PO SCH (21:54)
[2025-01-13 06:57] LABS: Hematocrit (blood only) 34.2 % (37.0-47.0); Hemoglobin 10.7 g/dl (12.0-16.0); Immature Granulocytes # (auto) 0.04 K/uL (0.01-0.20); Immature Granulocytes % (auto) 0.4 %; Mean Corpuscular Hemoglobin 25.0 pg (25.0-34.0); Mean Corpuscular Volume 79.9 fL (80.0-100.0); Platelet Count 246 K/uL (130-400); RDW Standard Deviation 40.7 fL (36.4-46.3); Red Blood Count 4.28 M/uL (4.20-5.40); White Blood Count 9.72 K/ul (4.8-10.8)
[2025-01-13 07:06] LABS: Anion Gap 7.0 (3-11); Blood Urea Nitrogen 6.0 mg/dl (6-23); Calcium 8.2 mg/dl (8.6-10.3); Carbon Dioxide 26.0 mmol/L (21-32); Chloride 111.0 mmol/L (98-107); Creatinine Clr Calc Pharmacy 133.4 ml/min; Glucose 88.0 mg/dl (70-99(Fasting)); Magnesium 1.6 mg/dl (1.7-2.4); Potassium 3.2 mmol/L (3.5-5.1); Sodium 144.0 mmol/L (136-145)
[2025-01-13] MEDS: CHOLECALCIFEROL 25 MCG (1000 UNITS) TAB PO SCH (10:39)
--- NOTE | 2025-01-13 13:39 | Electrocardiogram Report ---
Test Reason : Blood Pressure : */* mmHG Vent. Rate : 59 BPM Atrial Rate : 59 BPM P-R Int : 140 ms QRS Dur : 80 ms QT Int : 426 ms P-R-T Axes : 52 96 22 degrees QTcB Int : 421 ms Sinus bradycardia with sinus arrhythmia Rightward axis Nonspecific T wave abnormality Abnormal ECG When compared with ECG of 12-Jan-2025 08:38, T wave inversion no longer evident in Lateral leads Confirmed by Jak Manning ([id number]) on 01/13/2025 1:39:21 PM Referred By: REFERRED SELF Confirmed By: Jak Manning
--- NOTE | 2025-01-13 14:01 | Hospitalist Progress Note ---
"Date of Service January 13, 2025 Assessment & Plan (1) Hypokalemia: (2) Hypomagnesemia: (3) Hypophosphatemia: (4) Neuropathy: (5) History of DVT (deep vein thrombosis): Víctor Munguia is a 29 year old female with PMH significant for HL, hx of provoked PE, and cervical radiculopathy with C5-C6 disc replacement that presented to [facility] emergency department on 01/12/25 with c/o bilateral hand numbness, bilateral upper extremity numbness, facial numbness with associated carpal spa sms. Her symptoms were reproduced with pumping breast milk and breast-feeding. She is 4 months as she gave in September. She denied any major events with her spontaneous vaginal delivery. She denied any ongoing diarrhea, nausea, vomiting, food restriction, diuretic use. She was seen and treated for similar symptoms with significant electrolyte abnormalities on 11/18/24 at [facility] ER. She had significant electrolyte abnormality that was discovered upon lab review in the emergency department with identified hypocalcemia, hypomagnesemia, hypophosphatemia, and hypokalemia. Endocrinology was consulted regarding concerns for Kenneth's syndrome. Recommendation to replace electrolytes and consult nephrology to evaluate possible renal tube defect. ##hypomagnesemia|hypokalemia|hypocalcemia|hypophosphatasia: repleted with IV/oral Magnesium, IV/oral K, oral Ca, oral Kphos -K 2.4>3.2 -Phosphorous 1.5>2.9 -Ca 7.6>8.2 -Mg 1.9>1.6 -Vit D 19.9>start oral supp -24 hour urine K started collection -EKG with low voltage in setting of hypokalemia, repeat EKG normal -nephrology consult ##Neuropathy of bilateral arms, hands, face, resolved -possible etiology of electrolyte abnormalities -cervical spine assessment benign on exam -lyme's test -TSH normal -B12 292 ##leukocytosis-without overt s/s of infection, reported viral illness symptoms earlier in week -WBCs 20.76>9.72 -pro-calcitonin 2.34>1.57 -UA neg for infection -trend CBC ##4 months post state -has not resumed menstruation -has not resumed sexual activity or had visit -urine test -currently lactating, supplied with breast pump ##history of DVT/PE -reported provoked from discontinuation of previous PICC line with completion of AC for 3 months -on Lovenox during and was to complete X 3m -DVT prophylaxis with Lovenox Disposition: D/C home pending labs this afternoon Admission and Anticipated Discharge Date Admission Date: January 12, 2025 Subjective Reports feeling well this am. at the bedside. No neuropathy symptoms of bilateral upper arms/hands. No tetany like symptoms as reported upon presentation to ED. Eating and drinking well. Pumping breasts with adequate supply of breast milk. Tolerating oral potassium, calcium, potassium phosphate and magnesium without nausea/vomiting. Outside of remote hx of GI illness last week with one day of fleeting diarrhea, she states earlier this week she had a possible viral illness with myalgias and PERKINS. Denies fever, chills, cough, nasal congestion, SOB, abdominal pain or neck pain. Denies any dental pain or tooth drainage. Review of Systems Review of Systems: All systems reviewed & are unremarkable except as noted in Subjective Physical Exam Physical Exam: GENERAL APPEARANCE: A&O. Sitting comfortably in bed. NAD. SKIN: Normal color without rashes or lesions. Normal turgor. HEENT: Head AT/NC. Buccal mucosa is moist and pink. NECK: No jugular venous distention. No thyroid enlargement. There is no lymphadenopathy. HEART: RRR without m/g/r. LUNGS: Normal inspiratory effort. CTA without w/r/r. ABDOMEN: No guarding or rigidity. Normoactive BS in all four quadrants. Abdomen soft and NT. MSK: No bony gross/deformities throughout. ROM intact. EXTREMITIES: No edema, No peripheral cyanosis. Neuro: CN 2-12 grossly intact. No focal neuro deficits. PSYCHIATRIC: Normal affect. Eye contact is good. Speech is normal rate and content. Responses are appropriate. Results & Data Results & Data Vital Signs (Past 12 Hours) Vital Signs Temp Pulse Pulse Resp BP Pulse Ox O2 Del Method 01/13/25 12:10 36.7 C 54 L 19 122/80 99 Room Air 01/13/25 07:49 36.5 C 57 L 20 120/79 99 Room Air 01/13/25 07:17 54 L 01/13/25 04:19 36.7 C 67 16 112/73 98 Room Air Laboratory Results Labs reviewed PG Care Time/CCT Total # of Minutes Spent Total Time Spent with Patient: Total time spent is greater than 50% in coordination of care (as documented) at patient's floor/unit and/or counseling patient: Coding Level of Care Code 24086 SUB INP/OBS CARE 3/50MIN Diagnoses Hypokalemia E87.6 Hypomagnesemia E83.42 Hypophosphatemia E83.39 Neuropathy G62.9 History of DVT (deep vein thrombosis) Z86.718"
--- NOTE | 2025-01-13 14:59 | Nephrology Consultation ---
Date of Consultation January 13, 2025 Assessment & Plan (1) Hypocalcemia: (2) Hypokalemia: (3) Hypomagnesemia: (4) Hypophosphatemia: (5) Muscle spasm: Plan 29-year-old female with new finding of multiple critical electrolyte abnormality mainly noticed after recent delivery and during the. Of breast-feeding including hypokalemia, hypomagnesemia hypophosphatemia as well as symptomatic hypocalcemia leading to tingling, numbness prompting hospitalization. Received electrolyte replacement and most of the electrolyte level improved today although staying on the lower side of normal. Has normal kidney function. No history of exposure to any offending medication. Although calcium has been significantly low with low phosphorus but PTH was normal this morning. Pending 125 dihydroxy vitamin D. Concern for renal tubular dysfunction however no evidence of renal tubular acidosis. ? Possible canaloplasty however somewhat unusual to see that many electrolyte abnormality. She denied taking any diuretics or any other herbal supplement. History is not suggestive of any GI losses. -- Continue with aggressively replacing the electrolytes while getting 24-hour urine level for better assessment. -- Since she is eagerly waiting to go home, okay to discharge her after the 24- hour urine collection as well as repeat electrolyte this afternoon shows electrolytes at a safer level. Continue on oral supplement. -- Unable to consider ZAC inhibitor/ARB or aldosterone antagonist with relatively low blood pressure. -- We can get a renal ultrasound while she is here although do not see any pressing indication to do that or it will add anything to figure out the diagnos is. F/U in 2 to 3 weeks in office. Thank you for allowing me to participate in your patient's care. It was a pleasure to see Nilda. History of Present Illness Reason for Consultation: Critical electrolyte abnormality. Attending Physician: Enrique Cruz MD History of Present Illness Ms.Laura Penny is a 29-year-old female admitted to the hospital with multiple critical electrolyte abnormality. Nephrology consult was requested for management of electrolyte abnormality. EMR records were reviewed in detail during patient's visit. Her was at bedside during visit. Nilda presented to [facility] yesterday with worsening tingling and numbness and contractions in her hands and upper extremity as well as in her chest area. She has been having tingling and numbness in her hands over the last few months and she notices her symptoms worsen whenever she is breast- feeding. She was found to have electrolyte abnormality as an outpatient including hypokalemia, hypomagnesemia and hypokalemia and she was given oral supplement. She was admitted once to the hospital and her electrolyte improved on supplement. During previous admission she had workup including CT head, CTA of head and neck and venogram all was unremarkable. She reports having dizziness and lightheadedness especially while she was but her symptom resolved after she had a spontaneous vaginal delivery of a healthy boy on 09/28. There was no complication during delivery. No history of excessive bleeding during delivery. And she has been nursing her baby successfully. On admission yesterday serum potassium was 2.4 which improved to 3.2 this morning on supplement. Phosphorus is 1.5 improved to 2.5. Magnesium improved to 1.6 from 0.9 on admission. Calcium was 7.6 which improved to 8.2 this morning with serum albumin 3.8. Previous record showed that she had hypokalemia before but it was always mild and generally her potassium content to stay on the lower side of normal. No history of hypertension in fact she reports her blood pressure generally runs low. Has not been on diuretic. She denies taking any other health supplement or herbal supplement outside of her prescribed and recommended medications from her physician. Has not been on PPIs. She denied any chronic diarrheal illness or vomiting. She has been continuing on potassium and magnesium supplement. PTH was checked this morning and was found to be normal. Has normal kidney function, baseline creatinine 0.6 mg/dl. No evidence of metabolic acidosis. Urinalysis with no glycosuria. She is a non-smoker, does not drink alcohol. Works as a school psychologist. Has 2 young boys 2+ and 4 months old. Her past medical history is significant as for created Shana lymphoma in 2020 with ABVD x 6 cycles to full remission, recently had follow-up and she was told that the disease remains in remission. Lab at the time showed electrolytes are normal. Past medical history also significant for prior history of pulmonary embolism after she had DVT with PICC line. She had COVID 4 weeks ago. She reports feeling better this morning as her electrolyte improved, denies any significant tingling or numbness at this point. Allergies Allergy/AdvReac Type Severity Reaction Status Date / Time nut - unspecified Allergy Intermediate Anaphylaxis Verified 09/13/24 07:52 peanut Allergy Intermediate Dry Verified 09/13/24 07:52 throat, mouth and some swallowing difficulties peanut oil Allergy Intermediate Dry Verified 09/13/24 07:52 throat, mouth and some swallowing difficulties tree nut Allergy Intermediate Swelling Verified 09/13/24 07:52 of Lip/Tongue/Throat vancomycin Allergy Intermediate Rash/Flushi Verified 09/13/24 07:52 ng Home Medications Medication Instructions Recorded Confirmed Type epinephrine 0.3 mg/0.3 mL 0.3 ml IM DIRECTED PRN 02/05/24 01/12/25 History injection, auto-injector (EpiPen) Anaphylaxis ferrous sulfate 325 mg (65 mg 325 mg PO DAILY 09/01/24 01/12/25 History iron) tablet magnesium oxide 0 mg PO BID 01/12/25 01/12/25 History potassium chloride 20 mEq 0 meq PO BID 01/12/25 01/12/25 History tablet,extended release(part/cryst) (Klor-Con M) Patient History Medical History Vaginal discharge during Vasovagal syncope no issues since 2016 Lymphocyte-rich classical Hodgkin lymphoma dx 06/01/20, chemo-last tx 11/23/20; [facility] History of chemotherapy Anemia hx-during chemo and Depression post-chemo, no current issues Seasonal allergies History of chicken pox Osteomyelitis of pelvis "initial dx before dx of lymphoma- unsure if she ever really had this" Osteomyelitis of lumbar spine "initial dx before dx of lymphoma- unsure if she ever really had this" Back pain hx-due to lymphoma in her spine Leukocytosis hx-w/lymphoma Lung nodule due to her lymphoma in 2020 Bone lesion found in 2019, led to lymphoma dx. Surgical History S/P cervical disc replacement History of removal of Port-a-Cath History of removal of skin mole x3 S/P bronchoscopy x2; also had mediastenoscopy which dx her lymphoma Family History Grandmother (Paternal) Ovarian cancer Father Hypertension Kidney stone Grandfather (Paternal) Liver disease Kidney stone Mother Fibrocystic breast Denies family history of Breast cancer Colorectal cancer Social History Smoking Status: Never smoker Second Hand Exposure: No; Do You Dip or Chew Tobacco: No; Hx Alcohol Use: Yes Alcohol type: beer Alcohol Intake Frequency Comment: No alcohol during Hx Substance Use: No Preferred Language: French Communication Ability: Effective Hearing Ability: Normal 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 Beliefs That Will Affect Care: None marital status: marital status details: Melvin Penny (31) [phone] Current Living Situation: Spouse Current Living Situation Comment: Patient lives with her spouse, son, and a dog current occupational status: employed current occupation: School Psychologist Feels Safe at Home: No Is there a partner from a previous relationship who is making you feel unsafe now?: No Diet: regular Dental Care, Regularly: Yes Gender Identity: Female Assistive Devices: None Review of Systems Review of Systems: Detailed review of system was done and pertinent positives and negatives are mentioned above. Physical Exam Constitutional: WD/WN, vitals as above no acute distress Eyes: + anicteric sclerae Respiratory: Auscultation: lungs clear to auscultation bilaterally Cardiovascular: RRR, no murmur, no edema Gastrointestinal (Abdomen): Inspection/Auscultation: abdomen normal to inspection Musculoskeletal: Extremities: extremities normal to inspection Skin: no rashes, warm and dry Neurologic: no focal motor deficits Psychiatric: Orientation: alert and oriented x 3 Affect: euthymic affect Results & Data Vital Signs (Past 12 Hours) Vital Signs Temp Pulse Pulse Resp BP Pulse Ox O2 Del Method 01/13/25 13:59 65 01/13/25 12:10 36.7 C 54 L 19 122/80 99 Room Air 01/13/25 07:49 36.5 C 57 L 20 120/79 99 Room Air 01/13/25 07:17 54 L 01/13/25 04:19 36.7 C 67 16 112/73 98 Room Air PG Care Time/CCT Total # of Minutes Spent Total Time Spent with Patient: Total time spent is greater than 50% in coordination of care (as documented) at patient's floor/unit and/or counseling patient: Coding Level of Care Code 24418 INT INP/OBS CARE 3/75MIN Diagnoses Hypocalcemia E83.51 Hypokalemia E87.6 Hypomagnesemia E83.42 Hypophosphatemia E83.39 Muscle spasm M62.835
[2025-01-13 15:55] LABS: Albumin Level 3.6 gm/dl (3.4-5.0); Anion Gap 5.0 (3-11); Blood Urea Nitrogen 8.0 mg/dl (6-23); Calcium 8.7 mg/dl (8.6-10.3); Carbon Dioxide 27.0 mmol/L (21-32); Chloride 110.0 mmol/L (98-107); Creatinine Clr Calc Pharmacy 112.8 ml/min; Glucose 90.0 mg/dl (70-99(Fasting)); Magnesium 1.7 mg/dl (1.7-2.4); Potassium 4.0 mmol/L (3.5-5.1); Sodium 142.0 mmol/L (136-145)
[2025-01-13 16:06] VITALS: BP 125/71; PULSE 50; RESP 20; TEMP 98.4; O2SAT 98
--- NOTE | 2025-01-13 17:50 | Discharge Summary ---
"Discharge Summary Date of Service January 13, 2025 Principal Dx & Hospital Course #1 = Principal Diagnosis (1) Hypokalemia: (2) Hypomagnesemia: (3) Hypophosphatemia: (4) Neuropathy: (5) History of DVT (deep vein thrombosis): Víctor Munguia is a 29 year old female with PMH significant for HL, hx of provoked PE, and cervical radiculopathy with C5-C6 disc replacement that presented to [facility] emergency department on 01/12/25 with c/o bilateral hand numbness, bilateral upper extremity numbness, facial numbness with associated carpal spasms. Her symptoms were reproduced with pumping breast milk and breast- feeding. She is 4 months as she gave in September. She denied any major events with her spontaneous vaginal delivery. She denied any ongoing diarrhea, nausea, vomiting, food restriction, diuretic use. She was seen and treated for similar symptoms with significant electrolyte abnormalities on 11/18/24 at [facility] ER. She had significant electrolyte abnormality that was discovered upon lab review in the emergency department with identified hypocalcemia, hypomagnesemia, hypophosphatemia, and hypokalemia. Endocrinology was consulted regarding concerns for Kenneth's syndrome. Recommendation to replace electrolytes and consult nephrology to evaluate possible renal tube defect. ##hypomagnesemia|hypokalemia|hypocalcemia|hypophosphatasia - resolved repleted with IV/oral Magnesium, IV/oral K, oral Ca, oral Kphos Continue supplementation on discharge including potassium, magnesium, and calcium. Follow up w/ PCP for repeat labs next week Follow up w/ nephrology in 2-3 weeks on discharge. ##Neuropathy of bilateral arms, hands, face, resolved possible etiology of electrolyte abnormalities cervical spine assessment benign on exam lyme's test TSH normal B12 292 ##leukocytosis without overt s/s of infection, reported viral illness symptoms earlier in week WBCs 20.76>9.72 pro-calcitonin 2.34>1.57 UA neg for infection trend CBC ##4 months post state has not resumed menstruation has not resumed sexual activity or had visit urine test currently lactating, supplied with breast pump ##history of DVT/PE reported provoked from discontinuation of previous PICC line with completion of AC for 3 months on Lovenox during and was to complete X 3m DVT prophylaxis with Lovenox Discharged home Admission HPI Per Admitting Provider Patient is a 29-year-old female with past medical history significant for Hodgkin's lymphoma, history of provoked pulmonary embolism related to PICC line DVT, history of suspected osteomyelitis of left hip although there was suspicion her lesion was related to her later diagnosis of Hodgkin's lymphoma that presented to [facility] emergency department with complaints of numbness and tingling in her bilateral upper arms, hands and face that started while she was driving today. She has been having similar symptoms over the course of the past few months that have been intermittent. Aggravation of symptoms are provoked by her breast-feeding where she notices that the numbness and tingling in her hands worsens and she has hand contractions as well. She endorses there is always some level of neuropathy in her hands and upper arms. This did prompt a recent ER visit to [facility] on the date of 11/18/24 where she had an unremarkable workup including negative CT of the head, CTA of the head and neck and CT venogram. She is 4 months with uneventful spontaneous vaginal delivery on 09/13/24. She has been successfully with more than adequate supply of breast milk. She has not had resumption of her menstrual period post and has not had a menstrual period since December of 2023. She denies fever, chills, blood in breast milk, abnormal breast d/c or mastitis related symptoms. Her Hodgkin's lymphoma was treated at [facility] for HL in 2020 with ABVD x 6 cycles to full remission. She still follows with [facility] for lab surveillance. Review of her labs on her phone via [employer] in 11/2024 reveals no electrolyte abnormalities. She had previous C5-C6 disc replacement on 06/02/23 and states she has no cervical pain, loss of bowel/bladder function or weakening of upper arms/lower legs. Reports since she was last seen at [facility] in 11/2024 she started taking an OTC potassium and magnesium oral supplementation due to identified low K/Mg level with that visit. She had one remote episode of diarrhea last week she attributes to a transient GI illness as a surrounding family member was also ill. She was drinking Pedialyte/power aid at that time. She denies diuretic use or PPI prescription. States while she has been in the ED she notices her left arm locking up when the blood pressure cuff inflates. 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 Reported hx of COVID 4- weeks ago. Mild migraine last week that she took over the counter medication for which helped. She also recently ingested a peanut butter cookie 3 weeks ago and d/t allergy she was treated with oral steroids, Benadryl and EpiPen. Discharge Exam General: NAD, VS: BP 125/71; P50; T36.9C; R20 Resp: normal respiratory effort Extremities: Moves all extremities, no edema Neuro: A&O x3 Skin: intact, no lesions noted Discharge Plan Discharge Items Patient Disposition: Home - Self-Care Reason For Visit: ELECTROLYTES ABNORMALITIES Discharge Diagnosis: electrolyte derangement Condition on Discharge: Fair Activity: Resume your previous activity Non-emergency contact: Primary Care Provider and Gear Milling Machine Set Up Operator Call non-emergency contact if: you have any medication questions and your symptoms worsen Follow-up/Referrals: Monik Pearson MD [Physician] - [place] [Primary Care Provider] - Diet: Regular Addtl Attending Provider Instructions: Ms. Penny, Latrell were recently hospitalized secondary to abnormal electrolyte levels. These have been replenished. Medications: Your medication list has been reviewed and reconciled upon discharge to ensure accuracy and continuity of care. An updated list of all your medications is included with your hospital discharge paperwork. Please review this list closely, and make note of any changes. Supplements to continue at home include: Potassium chloride 20meq twice daily Magnesium Oxide 400mg twice daily Calcium carbonate 1250mg daily Vitamin D 25mcg daily. These medications have been sent to the pharmacy. Take your medications as instructed; do not skip a dose of your medicines. Make sure all of your doctors know every medicine you are taking (including ocdh-wqp-uaepema medicines, vitamins, and supplements). Call your primary care provider before taking any new medicines (including over- the-counter medicines, vitamins, and supplements), because some of these may interact with your current medications, or may make your symptoms worse. Tell your primary care provider if you cannot afford your medications. Activity: You can do normal everyday activities as your body allows. Take rest breaks if you feel tired. Do not overexert. Stop activity if you have pain, shortness of breath or feel dizzy. Follow-up appointments: Make an appointment with your primary care physician within one week of discharge. A copy of this summary will be sent to them. Every time you see your primary care physician, or any other doctor, bring your medication list, and a list of questions. At your follow up, additional lab work should be ordered to ensure that your electrolytes remain stable. Please follow up with the clinical documentation manager upon discharge. The office phone number is above if you should have any questions or concerns. CONTACT YOUR PRIMARY CARE PROVIDER if you experience any of the following: Shortness of breath or difficulty breathing Fevers or chills Feeling tired with normal activity or experiencing dizziness or fainting Difficulty following your treatment plan, or difficulty taking medications CALL 911 OR GO TO THE EMERGENCY DEPARTMENT if you experience any of the following: Severe abdominal pain or nausea/vomiting Severe chest pain, or chest pain that radiates (moves) to your jaw or arm Sudden, severe shortness of breath or difficulty breathing Thank you for allowing us to participate in your care. Pending Studies at Discharge: Yes Studies:: 24 hour urine results Stand-Alone Forms: My [facility] Pianpian, Smoking Cessation Medications and DC Order Prescriptions: New cholecalciferol (vitamin D3) 25 mcg (1,000 unit) Capsule 25 mcg PO QAM Qty: 30 0RF calcium carbonate 500 mg/5 mL (1,250 mg/5 mL) Suspension 1,250 mg PO DAILY Qty: 200 0RF Continued epinephrine [EpiPen] 0.3 mg/0.3 mL auto-injector 0.3 ml IM DIRECTED PRN (Reason: Anaphylaxis) Patient Comments: 01/12- no fill history unable to verify ferrous sulfate 325 mg (65 mg iron) Tablet 325 mg PO DAILY Patient Comments: 01/12- otc/no fill history unable to verify magnesium oxide 400 mg magnesium capsule 400 mg PO BID Qty: 60 0RF Patient Comments: 01/12-last filled 11/19 7 day supply #14. original:400 mg po bid Changed potassium chloride [Klor-Con M20] 20 mEq tablet,ER particles/crystals 0 meq PO BID Qty: 60 0RF Discharge Orders: Discharge Order (Routine); Ordered 01/13/25 Ordered By: Jaci Goldstein Admission Data Admit Date/Time: 01/12/25 12:37 Attending Provider: Enrique Cruz Admit Provider: Covaleski,Reid E. Primary Care Provider: [facility] Other Providers: Reid Christian; [facility] Stay Data Consultations 01/12/25 11:57 ED Decision to Admit Stat 01/13/25 08:41 Consult Nephrology Routine Pending Results Patient Have Any Pending Studies at Discharge: Yes Discharge Instructions Given to Patient (Per Discharging Provider) Latrell Carrillo were recently hospitalized secondary to abnormal electrolyte levels. These have been replenished. Medications: Your medication list has been reviewed and reconciled upon discharge to ensure accuracy and continuity of care. An updated list of all your medications is included with your hospital discharge paperwork. Please review this list closely, and make note of any changes. Supplements to continue at home include: Potassium chloride 20meq twice daily Magnesium Oxide 400mg twice daily Calcium carbonate 1250mg daily Vitamin D 25mcg daily. These medications have been sent to the pharmacy. Take your medications as instructed; do not skip a dose of your medicines. Make sure all of your doctors know every medicine you are taking (including qzsk-hfi-rkrkqyq medicines, vitamins, and supplements). Call your primary care provider before taking any new medicines (including over- the-counter medicines, vitamins, and supplements), because some of these may interact with your current medications, or may make your symptoms worse. Tell your primary care provider if you cannot afford your medications. Activity: You can do normal everyday activities as your body allows. Take rest breaks if you feel tired. Do not overexert. Stop activity if you have pain, shortness of breath or feel dizzy. Follow-up appointments: Make an appointment with your primary care physician within one week of discharge. A copy of this summary will be sent to them. Every time you see your primary care physician, or any other doctor, bring your medication list, and a list of questions. At your follow up, additional lab work should be ordered to ensure that your electrolytes remain stable. Please follow up with the clinical documentation manager upon discharge. The office phone number is above if you should have any questions or concerns. CONTACT YOUR PRIMARY CARE PROVIDER if you experience any of the following: Shortness of breath or difficulty breathing Fevers or chills Feeling tired with normal activity or experiencing dizziness or fainting Difficulty following your treatment plan, or difficulty taking medications CALL 911 OR GO TO THE EMERGENCY DEPARTMENT if you experience any of the following: Severe abdominal pain or nausea/vomiting Severe chest pain, or chest pain that radiates (moves) to your jaw or arm Sudden, severe shortness of breath or difficulty breathing Thank you for allowing us to participate in your care. Total Time Total Time Spent Total Time Spent (In Minutes): 45 Total Time Includes: Examination of the Patient, Discharge Planning, Medication Reconciliation, Communication With Other Providers and Other Coding Level of Care Code None Diagnoses Hypokalemia E87.6 Hypomagnesemia E83.42 Hypophosphatemia E83.39 Neuropathy G62.9 History of DVT (deep vein thrombosis) Z86.715"
[2025-01-13 22:43] LABS: Creatinine 24 Hour Urine 0.8 gm/24 HR (0.6-2.5); Total Volume Urine 700 mL; Total Volume Urine 700.0 mL
[2025-01-13 22:43] LABS: Total Volume Urine 700.0 mL
[2025-01-18 01:08] LABS: Creatinine, 24 hr Urine 0.63 g/24 h (0.50-2.15); Magnesium 24 hr Urine 6.0 mg/24 h (18-130); Magnesium/Creatinine 24 hr 9.0 mg/g creat (30-135)
== END 2025-01-13 19:45 | disposition home or self-care (01) | DRG 641 ==
LOC: ED 08:26 → 4W 12:37 → SUATTDRO 12:37 → 4W 14:45